=== PATIENT | male | born 1930 | race Caucasian/White ===

== ENCOUNTER 2018-12-11 10:50 | Inpatient (IN) | payer MEDICARE, OTHER ==
[~2018-12-11] VITALS: Ht 175.3 cm; Wt 90.0 kg
[~2018-12-11 10:50] MED LIST: ATOR10; Aspir 8181 MG PO; FURO20 PO; METO25ER; Micro-K10 MEQ; VERA120ERB; Zofran4 MG PO
[2018-12-11 11:21] LABS: BASOPHILS ABSOLUTE AUTO 0.03 K/mm3 (0.00-0.23); BASOPHILS PERCENT AUTO 0 % (0-2); EOSINOPHILS PERCENT AUTO 0 % (0-6); Hematocrit 46.3 % (37.0-53.0); Hemoglobin 15.6 g/dL (13.5-17.5); IMMATURE GRAN ABSOLUTE AUTO 0.08 K/mm3 (0.00-0.10); IMMATURE GRAN PERCENT AUTO 1 % (0-1); LYMPHOCYTES PERCENT AUTO 4 % (21-46); MONOCYTES ABSOLUTE AUTO 1.07 K/mm3 (0.16-1.47); MONOCYTES PERCENT AUTO 6 % (4-13); Mean Corpuscular HGB 33.1 pg (26.0-34.0); Mean Corpuscular HGB Conc 33.7 g/dL (31.5-36.5); Mean Corpuscular Volume 98 fL (80-100); Mean Platelet Volume 11.6 fL (9.1-12.4); NEUTROPHILS ABSOLUTE AUTO 15.18 K/mm3 (1.96-9.15); NEUTROPHILS PERCENT AUTO 89 % (41-73); Platelet Count 124 K/mm3 (150-400); RDW Coefficient Variation 13.2 % (11.7-14.2); RDW Standard Deviation 47.8 fL (35.1-46.3); Red Blood Cell Count 4.72 M/mm3 (4.30-5.90); White Blood Cell Count 17.06 K/mm3 (4.00-11.30)
[2018-12-11 11:39] LABS: Albumin, Blood 3.9 g/dL (3.4-5.0); Albumin/Globulin Ratio 1.1 (0.8-1.8); Bilirubin, Total 0.9 mg/dL (0.1-1.0); Calcium, Blood 8.7 mg/dL (8.5-10.1); Creatinine, Blood 1.27 mg/dL (0.60-1.20); Globulin, Blood 3.7 g/dL (2.2-4.0); Potassium, Blood 4.3 mmol/L (3.5-5.5); Total Protein, Blood 7.6 g/dL (6.4-8.2)
--- NOTE | 2018-12-11 18:43 | NUR ---
PATIENT ADMITTED THIS AFTERNOON . HE IS ALERT AND ORIENTED, INDEPENDANT IN THE ROOM. HE IS IN SEVERE PAIN AND REQUIRES PAIN MEDS Q2 HOURS. FAMILY AT BEDSIDE.
[2018-12-12 04:48] LABS: Hematocrit 49.4 % (37.0-53.0); Hemoglobin 16.4 g/dL (13.5-17.5); Mean Corpuscular HGB 32.5 pg (26.0-34.0); Mean Corpuscular HGB Conc 33.2 g/dL (31.5-36.5); Mean Corpuscular Volume 98 fL (80-100); Mean Platelet Volume 11.5 fL (9.1-12.4); Platelet Count 114 K/mm3 (150-400); RDW Coefficient Variation 13.6 % (11.7-14.2); RDW Standard Deviation 49.1 fL (35.1-46.3); Red Blood Cell Count 5.04 M/mm3 (4.30-5.90); White Blood Cell Count 20.01 K/mm3 (4.00-11.30)
--- NOTE | 2018-12-12 04:55 | NUR ---
SHIFT SUMMARY THE PATIENT PRESENTED THIS SHIFT WITH UNCONTROLED ABDOMINAL PAIN, ELEVATED B/P AND HIS TELE READING SHOWED, A-FIB WITH PVC AND RATE OF 67. THE PATIENT IS A&O X4, WITH CLEAR LUNG SOUNDS. THE PATIENT HAS REQUIRED FENTYNL FOR PAIN ABOUT EVERY 90 MINUTES. THE PATIENT IS INDEPENTENT IN HIS ROOM. THE PATIENT LACTIC ACID AT 2330 WAS 2.6, DOWN FROM 3.9. THE PATIENT HAS SLEPT OFF AND ON DURNING THE NIGHT. THE PATIENT IS RESTING AT THIS TIME, WILL CONTINUE TO MONITOR.
[2018-12-12 05:04] LABS: Bun/Creatinine Ratio 21.1 (12.0-20.0); Calcium, Blood 8.8 mg/dL (8.5-10.1); Creatinine, Blood 1.23 mg/dL (0.60-1.20); Potassium, Blood 4.2 mmol/L (3.5-5.5)
--- NOTE | 2018-12-12 07:32 | NUR ---
PT COMPLAINS OF PAIN 15/08, WRITHING AROUND IN BED, STATES THAT PAIN IS DULL BUT INTENSE DESPITE PAIN CONTROL PER EMAR. DR STEPHENS CALLED AT 0730 PER PT REQUEST AND NURSING JUDGEMENT. VS; 97.6, 79, 20, 190/91, 95% ON RA. NEW ORDERS INITIATED.
--- NOTE | 2018-12-12 08:16 | NUR ---
AT 0810 NURSE RECIEVED A CALL FROM [employer] THAT PT HAD 11 BEAT RUN OF V-TACH. PT AT 0806 WAS 177/83. WAS 190/[address] STEPHENS CALLED AT 0814. NEW ORDERS INITIATED.
--- NOTE | 2018-12-12 10:21 | NUR ---
DR STEPHENS AWARE OF ELEVATED TROPONIN OF 0.389
[2018-12-12 13:55] LABS: International Normalized Ratio 1.1; Prothrombin Time Results 11.6 Sec (9.7-11.5)
--- NOTE | 2018-12-12 14:07 | NUR ---
ECHOCARDIOGRAM COMPLETE
[2018-12-12 16:44] LABS: Source, Urine Catheter
[2018-12-12 16:53] LABS: Bilirubin, Urine Neg (Neg); Blood, Urine 5+ (Neg); Glucose Qualitative, Urine 2+ (Neg); Ketones, Urine 1+ (Neg); Leukocyte Esterase, Urine Neg (Neg); Nitrite, Urine Neg (Neg); Protein, Urine 3+ (Neg); Specific Gravity, Urine 1.015 (1.003-1.022); Urobilinogen, Urine NORM (Normal); pH, Urine 6.5 (5.0-8.0)
[2018-12-12 16:54] LABS: Appearance, Urine Clear (Clear); Color, Urine Yellow (P-Yellow)
[2018-12-12 17:04] LABS: White Blood Cells, Urine 0-2 /hpf (0-5)
[2018-12-12 17:05] LABS: Bacteria Rare /hpf; Squamous Epithelial Cells Not Seen /hpf (Few)
--- NOTE | 2018-12-12 18:19 | NUR ---
SHIFT SUMMARY PT AXO, PLEASANT AND COOPERATIVE WITH CARE THOUGH PAINFUL 7-08/05. PT MEDICATED PER EMAR. BLADDER SCAN Q6, STRAIGHT CATH OVER 350 ML, STRAIGHT CATHED ONCE THIS SHIFT, US SENT. PT HAD 11 BEAT RUN OF VTACH, SEE PRIOR NOTE. GI CONSULT AND SURGICAL CONSULT CALLED. PT UP WITH SBA. BED IN LOW POSITION, CALL LIGHT WITHIN REACH.
--- NOTE | 2018-12-13 05:10 | NUR ---
SUMMARY: A/O, PLEASANT/COOPERATIVE AND SPECIFIES NEEDS. HE'S A SBA OOB AND USED URINAL W/O DIFFICULTY. Q6H BLADDER SCANS COMPLETED AND PT NOTED TO RETAIN BUT PVR WAS <350 MLS BOTH TIMES. ABDO CONT'S INTERMITTENTLY PAINFUL W/DILAUDID PRN RECIEVED FOR TOLERABLE CONTROL X2 DOSES. HIS SBP WAS ALSO ELEVATED >160 W/PRN HYDRALAZINE RECIEVED X1 DOSE. HICCUPS PERSIST AT TIMES. PT REMAINS IN A.FIB W/PVC'S AT 70'S BPM. PT DIDN'T HAVE BM THIS SHIFT SO STAFF UNABLE TO OBTAIN STOOL SPECIMEN. SX CONSULT PENDING. WBC'S TRENDED SLIGHTLY UPWARD DESPITE RECIEVING IV ZOSYN Q6H. NO ACUTE CHANGES, VSS/AFREBRILE. WILL MONITOR AND REPORT TO DAY RN.
[2018-12-13 05:18] LABS: Hematocrit 48.2 % (37.0-53.0); Mean Corpuscular HGB 32.3 pg (26.0-34.0); Mean Corpuscular HGB Conc 33.2 g/dL (31.5-36.5); Mean Corpuscular Volume 97 fL (80-100); Mean Platelet Volume 11.3 fL (9.1-12.4); Platelet Count 100 K/mm3 (150-400); RDW Coefficient Variation 13.8 % (11.7-14.2); RDW Standard Deviation 49.7 fL (35.1-46.3); Red Blood Cell Count 4.95 M/mm3 (4.30-5.90); White Blood Cell Count 20.46 K/mm3 (4.00-11.30)
[2018-12-13 05:49] LABS: Bun/Creatinine Ratio 22.2 (12.0-20.0); Calcium, Blood 8.8 mg/dL (8.5-10.1); Creatinine, Blood 1.26 mg/dL (0.60-1.20); Potassium, Blood 4.1 mmol/L (3.5-5.5); Troponin I 0.375 ng/mL (0.000-0.040)
[2018-12-13 08:33] LABS: Hematocrit 48.3 % (37.0-53.0); Mean Corpuscular HGB 32.6 pg (26.0-34.0); Mean Corpuscular HGB Conc 33.1 g/dL (31.5-36.5); Mean Corpuscular Volume 98 fL (80-100); Mean Platelet Volume 11.9 fL (9.1-12.4); Platelet Count 103 K/mm3 (150-400); RDW Standard Deviation 50.4 fL (35.1-46.3); Red Blood Cell Count 4.91 M/mm3 (4.30-5.90); White Blood Cell Count 20.47 K/mm3 (4.00-11.30)
[2018-12-13 08:54] LABS: BAND PERCENT MAN 23 % (0-8); BASOPHILS PERCENT MAN 0 % (0-2); EOSINOPHILS PERCENT MAN 0 % (0-6); LYMPHOCYTES ABSOLUTE MAN 0.61 K/mm3 (0.84-5.20); LYMPHOCYTES PERCENT MAN 3 % (21-46); METAMYELOCYTE PERCENT MAN 1 % (0-0); MONOCYTES ABSOLUTE MAN 2.86 K/mm3 (0.16-1.47); MONOCYTES PERCENT MAN 14 % (4-13); NEUTROPHILS ABSOLUTE MAN 16.78 K/mm3 (1.96-9.15); SEG NEUTROPHILS PERCENT MAN 59 % (41-73); TOTAL CELLS COUNTED 100
--- NOTE | 2018-12-13 10:15 | NUR ---
PT LEFT ROOM VIA EMILEERJARED TO OPERATING ROOM VIA RN AND FAMILY AND CONSUMER SCIENCES TEACHER, DR DOTY AT 0950. PT'S SON PRESENT. PT MEDICATED FOR PAIN AT 0744 PER DEC. IV PATENT AND SALINE LOCKED. PT BELONGINGS WILL BE MOVED TO PT'S NEW ROOM WHEN ASSIGNMENT IS COMPLETE, THEN NURSE WILL CALL RECEIVING NURSE TO GIVE REPORT.
--- NOTE | 2018-12-13 11:11 | NUR ---
REPORT CALLED TO NEHAL TAFOYA AT 1105 WHO WILL ASSUME CARE AT THIS TIME. PT GOING TO ICU 10
--- NOTE | 2018-12-13 12:10 | NUR ---
PT ARRIVED TO ICU 10 AT 1110 POST EX LAP. PT HAS AN OPEN ABDOMEN WITH WOUND VAC OVER IT. NG TUBE IN WELL. PT STATES HE IS HAVING A LOT OF PAIN. DILAUDID GIVEN PER ORDERS. IV FLUIDS STARTED. BP ELEVATED, HYDRALAZINE GIVEN. PT IS IN AFIB, RATE CONTROLLED. LUNGS CLEAR, ON 2L/NC. BOWEL TONES ARE PRESENT. WOUND VAC HAS SS DRAINAGE IN IT. DEJESUS DRAINING DARK YELLOW URINE. PT'S SON AT THE BEDSIDE AND WAS UPDATED BY DR. LOMAS. PLAN OF CARE DISCUSSED WITH HIM. DR. LOMAS GAVE ORDERS FOR PT TO BE ICU STATUS AND TO START THE HEPARIN DRIP AT 1400.
--- NOTE | 2018-12-13 14:31 | NUR ---
PT'S HEPARIN GTT STARTED. DR. LOMAS GAVE VO TO NOT GIVE HEPARIN BOLUS, SO BOLUS HELD. LACTIC ACID FOR THE AM PLACED PER DR. LOMAS, AND ORDERS FOR LR BOLUS AND ICNREASE IN CONTINUOUS RATE PER DR. STEPHENS AFTER LAST LACTIC ACID VALUE. MORPHINE MANAGER RECRUITMENT STARTED. WHEN PT IS ASLEEP HE APPEARS COMFORTABLE, BUT WHEN HE WAKES UP HE HAS HICCUPS THAT ARE CAUSING HIM A LOT OF PAIN. THIS HAS ALL BEEN DISCUSSED WITH DR. LOMAS, WHICH IS WHY PAIN MANAGEMENT WAS SWITCHED TO MANAGER RECRUITMENT. DISCUSSED ALL THIS WITH FMILY AND PT WELL REALISTIC PAIN GOAL FOR THE PT. ALL HAVE VERBALIZED UNDERSTANDING.
--- NOTE | 2018-12-13 17:12 | NUR ---
SHIFT SUMMARY: PT'S PAIN HAS BEEN BETTER CONTROLLED WITH THE PERSONAL INSURANCE ADVISOR. HE STILL HAS PAIN, BUT HE HAS BEEN ABLE TO REST AND ISN'T GRIMACING FREQUENTLY. HIS LUNGS ARE CLEAR AND HE IS ON 2L/NC, BUT IN HIS MOUTH BECAUSE IS HAS BEEN MOUTH BREATHING WHILE SLEEPING. HE HAS BEEN WAKING UP AND USING THE PERSONAL INSURANCE ADVISOR MOSTLY APPROPRIATELY. OCCASIONALLY REQUIRES REMINDERS ABOUT HOW IT WORKS. BP WAS HYPERTENSIVE WHEN HE FIRST GOT BACK FROM OR, BUT BP HAS IMPROVED THROUGHOUT THE SHIFT. ABDOMEN REMAINS VERY TENDER. BOWEL TONES ARE TINKLING. WOUND VAC IN PLACE AND EDGES OF WOUND ARE C/D/I. SS DRAINAGE FROM WOUND VAC. NG TO LIS. FAMILY HAS BEEN AT THE BEDSIDE MOST OF THE SHIFT, BUT APPROPRIATELY ALLOWING PT TO REST.
--- NOTE | 2018-12-13 19:55 | NUR ---
[place] of Care: Patient sleeping, easily roused via verbal stimuli, oriented x4. C/o acceptable level of pain to ABD at rest 1-2/10, increased to 9/10 with coughing or repositioning. Patient states morphine ENTRY LEVEL CIVIL ENGINEER effectively managing pain. Morphine ENTRY LEVEL CIVIL ENGINEER dosed at 1mg/hr, ENTRY LEVEL CIVIL ENGINEER of 1mg q10 min with 24mg 4hr lockout, dosing confirmed with day shift RN. Heparin gtt at 15u/kg/hr, doses at 77kg, confirmed with EMAR and day shift RN, next PTT at 2000hr. LR infusing at 150ml/hr. Power-glide to rt upper arm patent and intact, peripheral IV to lt AC patent and intact. Wound-Vac to open mid/lower ABD, dressing compressed and intact, suctioning small amounts of sanguinous fluid. Herring cath patent and intact, draining light yellow clear urine. Hearth rhythm shows A-fibb, rate- 70's-80's, BP stable. Call light in reach, makes needs known. Will continue to monitor for pain, comfort, safety.
[2018-12-14 04:26] LABS: Hemoglobin 12.7 g/dL (13.5-17.5); Mean Corpuscular HGB 32.6 pg (26.0-34.0); Mean Corpuscular HGB Conc 32.6 g/dL (31.5-36.5); Mean Corpuscular Volume 100 fL (80-100); NRBC ABSOLUTE 0.03 K/mm3 (0.00-0.02); NRBC Auto 0.2 /100 WBC (0.0-0.2); Platelet Count 93 K/mm3 (150-400); RDW Coefficient Variation 14.1 % (11.7-14.2); RDW Standard Deviation 51.7 fL (35.1-46.3); White Blood Cell Count 16.85 K/mm3 (4.00-11.30)
[2018-12-14 04:38] LABS: Bun/Creatinine Ratio 21.3 (12.0-20.0); Calcium, Blood 8.2 mg/dL (8.5-10.1); Creatinine, Blood 1.69 mg/dL (0.60-1.20); Potassium, Blood 4.3 mmol/L (3.5-5.5)
[2018-12-14 04:55] LABS: BAND PERCENT MAN 23 % (0-8); BASOPHILS PERCENT MAN 0 % (0-2); EOSINOPHILS PERCENT MAN 0 % (0-6); LYMPHOCYTES ABSOLUTE MAN 0.33 K/mm3 (0.84-5.20); LYMPHOCYTES PERCENT MAN 2 % (21-46); METAMYELOCYTE ABSOLUTE MAN 0.16 K/mm3 (0.00-0.00); METAMYELOCYTE PERCENT MAN 1 % (0-0); MONOCYTES ABSOLUTE MAN 0.84 K/mm3 (0.16-1.47); MONOCYTES PERCENT MAN 5 % (4-13); SEG NEUTROPHILS PERCENT MAN 69 % (41-73); TOTAL CELLS COUNTED 100
--- NOTE | 2018-12-14 06:06 | NUR ---
Shift Summary: Patient slept well throughout shift. Pain effectively managed with morphine DIPLOMA MAKER. Denies dyspnea/SOB, O2-92-94% on 2L/NC. At approx 0300hr, patient's ABD wound-vac found off due to low battery, power-cord not found in room. New power cord obtained, and pump turned back on. Pump then alarmed clogged as small amount of blood had pooled under clear/occlusive dressing, although dressing remains intact. Contacted Dr. Osborn this morning r/t wound vac and urine output (325ml). No new orders received r/t wound vac, informed patient will likely go back to OR today. Received order for x1L bolus of LR. Informed pharmacy (per Dr. Osborn) to keep target rang PTT at 80 or less. Last PTT-93.2, dose decreased from 15u to 14u/kg/hr, next PTT at 1200. Power-glide remains patent and intact. Herring cath patent and intact, draining clear urine with sediment. Will continue to monitor until report to day shift RN.
--- NOTE | 2018-12-14 07:38 | NUR ---
ASSUMED CARE: REPORT RECEIVED FROM ADITI Rodriguez RN. ASSUMED CARE OF THIS PT AT APPROX 0700. ON ASSESSMENT, THE PT IS RESTING QUIETLY. HE AWAKENS EASILY TO VERBAL STIMULUS & STS PAIN IS "OKAY." WHEN ASKED HOW HE WOULD NUMERICALLY RATE PAIN, HE STS 10/10, BUT ALSO THAT THE PAIN IS "IMPROVED." USE OF PHYSICIST ACOUSTICS DISCUSSED & PT VERBALIZES UNDERSTANDING. THE WOUND VAC AT BEDSIDE IS ALARMING R/T BEING CLOTTED OFF. WOUND VAC DRESSING TO MIDLINE ABD IS INTACT, ALTHOUGH IT IS BULGING SLIGHTLY FROM SANGUINOUS DRAINAGE BENEATH THE DRESSING. THE SURGEON IS AWARE OF THESE THINGS & HAS BEEN IN THE ROOM TO SEE THE PT THIS AM PRIOR TO THIS RN ASSUMING CARE. PLAN IS FOR PT TO RETURN TO OR SOMETIME THIS AFTERNOON. WILL CONTINUE TO MONITOR & UPDATE NEEDED.
--- NOTE | 2018-12-14 10:24 | NUR ---
PT UPDATE: DR LOMAS CALLED TO REPORT A SURGICAL TIME OF 1500. ORDERED TO HAVE HEPARIN GTT STOPPED AT 1300, 2 HRS PRIOR TO SURGICAL TIME. CALLED [facility], AND PT HAS PLANNED PROCEDURE VENEER TAPING MACHINE OPERATOR TIME OF 1130.
--- NOTE | 2018-12-14 11:48 | NUR ---
HEART CENTER: HC STAFF IN ROOM TO PREP PT & TAKE HIM TO FIELD PROJECT MANAGER. CONSENT IS VERIFIED, PT AWAKE & UNDERSTANDING OF PROCEDURE. HE HAS BEEN TAKEN TO HC. WILL AWAIT PT's ARRIVAL BACK TO UNIT & UPDATE NEEDED.
--- NOTE | 2018-12-14 13:48 | NUR ---
RETURN FROM HEART CENTER / UPDATE: PT BACK TO AT 1335 FOLLOWING PROCEDURE IN HEART CENTER. HE IS RESTING QUIETLY AT THIS TIME, VSS. PER REPORT, HE RECEIVED 1MG VERSED & 25 MCG FENTANYL FOR PROCEDURE. ANGIOSEAL TO R FEMORAL ARTERY IS CDI. AREA IS SOFT TO PALPATION W/ NO BLEEDING, BRUISING OR HEMATOMA FORMATION NOTED AT THIS TIME. 2L NC ON AT THIS TIME, O2 SATS > 90%. THIS RN HAS NOTIFIED DAY SURGERY OF PT's RETURN TO , PLAN IS TO TAKE HIM TO OR AT APPROX 1430. WILL CONTINUE TO MONITOR & UPDATE NEEDED.
--- NOTE | 2018-12-14 14:32 | NUR ---
DAY SURGERY: RNs FROM DAY SURGERY IN ROOM TO PREP PT. ANESTHESIOLOGIST IN ROOM TO CONSENT PT. HE WAS ABLE TO SIGN ONE CONSENT BUT THEN SAID HE WAS "TOO WEAK" TO SIGN THE SECOND SHEET OF PAPER. THE PT VERBALIZES THAT HE IS "OKAY" W/ PROCEDURE & 2 RNs HAVE SIGNED TO WITNESS THIS. PT OUT OF FOR DAY SURGERY AT 1430. WILL AWAIT ARRIVAL BACK TO ROOM & UPDATE NEEDED.
--- NOTE | 2018-12-14 15:21 | NUR ---
12/14/18 1521 Mary [place] PATIENT ARRIVED FROM ICU WITH WOUND VAC IN PLACE. DR LOMAS REMOVED WOUND VAC AND REQUESTED INTACT SKIN BE PREPPED WITH CHLOROPREP. NO PREP WAS DONE TO OPEN ABDOMEN. PATIENT ON SCHEDULED ANTIBIOTICS.
--- NOTE | 2018-12-14 17:39 | NUR ---
RETURN FROM DAY SURGERY / UPDATE: PT RETURNED TO FROM DAY SURG AT APPROX 1640. HE IS DROWSY ON ARRIVAL, ETT IN PLACE & BEING VENTILATED VIA DAY PERSONAL COMPUTER NETWORK ENGINEERVICENTE MENDOZA. ETT ATTACHED TO VENT BY RT FRANSISCO. VENT SETTINGS: AC 14, TV 450, PEEP 5 & FIO2 35%. PROPOFOL INITIATED ORDERED FOR SEDATION. WOUND VAC IN PLACE TO MIDLINE ABD. R FEMORAL PUNCTURE SITE FROM SILK SPOOLER IS FREE OF BLEEDING, BRUISING & HEMATOMA FORMATION, SOFT TO PALPATION. DR. HERNANDEZ HAS BEEN CONSULTED & IS BEDSIDE SHORTLY AFTER PT's ARRIVAL TO UNIT. ORDERS HAVE BEEN PLACED FOR BILAT SOFT WRIST RESTRAINTS. PT CHARMAINE WELL. WILL CONTINUE TO MONITOR & UPDATE NEEDED.
--- NOTE | 2018-12-14 18:56 | NUR ---
SHIFT SUMMARY: NO ACUTE CHANGES SINCE PRIOR UPDATE. PT REMAINS INTUBATED/SEDATED. HE IS RESTING QUIETLY W/ NO S/SX PAIN OR DISCOMFORT NOTED AT THIS TIME. BILAT SOFT WRIST RESTRAINTS IN PLACE. LS REMAIN DIM IN BASES, VENT SETTINGS: AC 14, TV 450, PEEP 5 & FiO2 35%. AFIB W/ HR 70-80s NOTED ON MONITOR. NGT HAS BEEN REPLACED W/ OGT PER DR. HERNANDEZ R/T SINUSITIS. DEJESUS PATENT/DRAINING DARK YELLOW URINE, MINIMAL OUTPUT THIS SHIFT. WOUND VAC REMAINS CDI, NO OUTPUT NOTED IN CANISTER. R FEMORAL SITE REMAINS FREE OF BLEEDING, BRUISING OR HEMATOMA FORMATION & IS SOFT TO PALPATION. WILL CONTINUE TO MONITOR & REPORT OFF TO ONCOMING RN.
[2018-12-14 19:39] LABS: PCO2 Arterial 35.9 mmHg (35-45); PO2 Arterial 77.7 mmHg (80-100); pH Blood Arterial 7.41 (7.35-7.45)
--- NOTE | 2018-12-14 20:11 | NUR ---
CARE ASSUMED REPORT RECEIVED, CARE ASSUMED AT 1900 FROM NEHAL, RN AND VICENTE SALCEDO. PT INITIALLY SEDATED WITH 10 MCG/KG/MIN OF PROPOFOL, AND VERY DIFFICULT TO AROUSE. MINIMAL RESPONSE WITH STERNAL RUB. SEDATION DECREASED TO 5 MCG/KG/MIN. DURING ORAL CARE, PT BECAME AROUSED, SHAKING HEAD FROM SIDE TO SIDE, PULLING AT RESTRAINTS AND REACHING FOR ETT. PT REDIRECTABLE WITH EDUCATION. PT FORGETFUL, REQUIRING FREQUENT RE-EDUCATION. PT RE-SEDATED. WOUND VAC IN PLACE TO ABDOMEN, TURNED ON AND RUNNING, NO OUTPUT NOTED. OG IN PLACE WITH MODERATE GREEN OUTPUT. DEJESUS IN PLACE WITH MINIMAL OUTPUT. VITALS STABLE. SEE FLOWSHEETS/ASSESSMENTS.
--- NOTE | 2018-12-15 | NUR ---
REASSESSMENT SINCE PREVIOUS NOTE, PT HAS RESTED QUITELY, PROPOFOL TITRATED BETWEEN 5-10 FOR SEDATION. PT EXPRESSES NEEDS BY ANSWERING YES/NO QUESTIONS AND FOLLOWS COMMANDS. PT HAS CONSISTENTLY DENIED PAIN. PT HAS TOLERATED TURNS. VENT SETTINGS CONSISTENT, O2 SATS IN 90'S, RR 12-20'S. VITALS STABLE. WOUND VAC CONTINUES TO BE CLEAN/DRY/INTACT WITH NO OUTPUT. RIGHT GROIN SITE UNCHANGED. DEJESUS CONTINUES TO SLOWLY DRAIN YELLOW URINE.
[2018-12-15 03:57] LABS: BASOPHILS ABSOLUTE AUTO 0.03 K/mm3 (0.00-0.23); BASOPHILS PERCENT AUTO 0 % (0-2); Hematocrit 33.5 % (37.0-53.0); Hemoglobin 10.9 g/dL (13.5-17.5); LYMPHOCYTES ABSOLUTE AUTO 0.38 K/mm3 (0.84-5.20); LYMPHOCYTES PERCENT AUTO 3 % (21-46); MONOCYTES ABSOLUTE AUTO 0.66 K/mm3 (0.16-1.47); MONOCYTES PERCENT AUTO 5 % (4-13); Mean Corpuscular HGB 32.4 pg (26.0-34.0); Mean Corpuscular HGB Conc 32.5 g/dL (31.5-36.5); Mean Corpuscular Volume 100 fL (80-100); Mean Platelet Volume 11.8 fL (9.1-12.4); NRBC ABSOLUTE 0.04 K/mm3 (0.00-0.02); NRBC Auto 0.3 /100 WBC (0.0-0.2); Platelet Count 91 K/mm3 (150-400); RDW Coefficient Variation 13.8 % (11.7-14.2); RDW Standard Deviation 50.7 fL (35.1-46.3); Red Blood Cell Count 3.36 M/mm3 (4.30-5.90); White Blood Cell Count 12.78 K/mm3 (4.00-11.30)
[2018-12-15 04:02] LABS: EOSINOPHILS PERCENT AUTO 0 % (0-6); IMMATURE GRAN ABSOLUTE AUTO 0.16 K/mm3 (0.00-0.10); IMMATURE GRAN PERCENT AUTO 1 % (0-1); NEUTROPHILS ABSOLUTE AUTO 11.55 K/mm3 (1.96-9.15); NEUTROPHILS PERCENT AUTO 90 % (41-73)
[2018-12-15 04:10] LABS: Bun/Creatinine Ratio 23.8 (12.0-20.0); Calcium, Blood 7.9 mg/dL (8.5-10.1); Creatinine, Blood 1.68 mg/dL (0.60-1.20); Potassium, Blood 4.2 mmol/L (3.5-5.5)
[2018-12-15 04:12] LABS: BAND PERCENT MAN 10 % (0-8); BASOPHILS PERCENT MAN 0 % (0-2); EOSINOPHILS PERCENT MAN 0 % (0-6); LYMPHOCYTES ABSOLUTE MAN 0.25 K/mm3 (0.84-5.20); LYMPHOCYTES PERCENT MAN 2 % (21-46); METAMYELOCYTE ABSOLUTE MAN 0.12 K/mm3 (0.00-0.00); METAMYELOCYTE PERCENT MAN 1 % (0-0); MONOCYTES ABSOLUTE MAN 0.51 K/mm3 (0.16-1.47); MONOCYTES PERCENT MAN 4 % (4-13); MYELOCYTE ABSOLUTE MAN 0.12 K/mm3 (0.00-0.00); MYELOCYTE PERCENT MAN 1 % (0-0); NEUTROPHILS ABSOLUTE MAN 11.75 K/mm3 (1.96-9.15); SEG NEUTROPHILS PERCENT MAN 82 % (41-73); TOTAL CELLS COUNTED 100
[2018-12-15 04:13] LABS: PCO2 Arterial 35.4 mmHg (35-45); PO2 Arterial 67.8 mmHg (80-100); pH Blood Arterial 7.45 (7.35-7.45)
--- NOTE | 2018-12-15 06:00 | NUR ---
SEDATION VACATION / SPONTANEOUS BREATHING TRIAL SEDATION REMOVED FOR SPONTANEOUS BREATHING TRIAL. PT CALM, COOPERATIVE, FOLLOWING COMMANDS AND EXPRESSING NEEDS. PT REPEATEDLY ASKS FOR ETT TO BE TAKEN OUT BY POINTING AND NODDING "YES" WHEN PROMPTED. EDUCATED ABOUT PLAN AND PURPOSE AND PT AGREEABLE, THOUGH FORGETFUL OF EDUCATION. PT ON PRESSURE SUPPORT 04/30, TRIAL COMPLETED PER KIERSTEN RT, AND PT REQUESTS TO STAY UNSEDATED AND TOLERATED FOR APPROX 2 HOURS. DURING NURSE ROUNDS, PT REQUESTING TO BE RE-SEDATED PER YES/NO QUESTIONS. JANIE, RT TO BEDSIDE TO PLACE PATIENT BACK ON AC /. PROPOFOL RE-TITRATED TO EFFECT.
--- NOTE | 2018-12-15 07:20 | NUR ---
SUMMARY VITALS STABLE, PT CONTINUES TO EXPRESS NEEDS PRN. WOUND VAC AND RIGHT GROIN SITE UNCHANGED. VENT SETTINGS UNCHANGED.
--- NOTE | 2018-12-15 07:28 | NUR ---
Recieved report from Salina ZHANG. Patient laying on right side with HOB at 30 degrees. He is intubated and sedated light and opens eyes to verbal stimuli. He is intubated with 8.0 RT and 25cm at teeth, vent settings AC 14, TV 450, FiO2 35% and PEEP 5.0 and sats 98% He has 20ga PowerGlide in CHAPARRITA dressing intact and site WNL's and is infusing Propofol at 10 mcg/kg/hr and LR at 150ml/hr. He also has 20ga IV LFA dressing intact and site WNL's infusing Heparin gtt at 14 units/kg/hr. He has midline abdominal wound with wound vac in place with scant output. He has 14Fr. mata draining to gravity unruly colored urine. He is wearing bilateral SCD's to LE's. He is in bilateral soft wrist restraints to protect lines and tubes.
--- NOTE | 2018-12-15 09:30 | NUR ---
Pulled OG and replaced with NG as he will probably be extubated today and Dr Osborn wants tube in to decompress stomach. Increased Propofol to 20 during insrtion and he tolerated well. He was hitting bedrailm and when asked he motioned he wanted tube out. Increased Propofol back to 20 to let him rest. He is LIS to NG.
--- NOTE | 2018-12-15 11:30 | NUR ---
Patient continues to rest while on 20mcg/kg/hr Propofol, no changes in Heparin gtt or fluids. No changes in vent setting and sats upper 90%'s. Abdomen c/d/i and still scant output.
--- NOTE | 2018-12-15 12:58 | NUR ---
Sputum sample taken and will be placed on Spontaneouis mode per Dr Hooks whom wasm by to evaluate. will consider extubation if does well
--- NOTE | 2018-12-15 13:49 | NUR ---
Patient was turned down to 5mcg propofol and is starting to wake upm > Dr Hooks requested sputum sample. He has been placed on spontaneous PS 7/5 and sats upper 90%'s. He was extubated and is on RA and able to answer question.
--- NOTE | 2018-12-15 15:30 | NUR ---
Patient is alert and oriented an d is able to communicate his needs. Dr Wright and Dr Osborn have been by and patient has been doing well. Family and has been in and is at bedside. Propofol off and LR at 50ml/hr and no change ion heparin gtt.
--- NOTE | 2018-12-15 18:24 | NUR ---
patient has been resting well and is very cooperative with care. Wound vac site C/D/I with scant output. He remains on Ra and sats upper 90@. No changes in Haparin gtt at 14 units/kg/hr. LR contn ues to run at 50ml/hr. Placed PICC line in LINDA and will start TPN tomorrow. SCD's bilaterally to LE's. Herring still draining to gravity cloudy unruly urine. NG to LIS with minimal output
[2018-12-16 03:42] LABS: BASOPHILS ABSOLUTE AUTO 0.04 K/mm3 (0.00-0.23); BASOPHILS PERCENT AUTO 0 % (0-2); EOSINOPHILS PERCENT AUTO 0 % (0-6); Hematocrit 29.4 % (37.0-53.0); Hemoglobin 9.8 g/dL (13.5-17.5); IMMATURE GRAN ABSOLUTE AUTO 0.68 K/mm3 (0.00-0.10); IMMATURE GRAN PERCENT AUTO 5 % (0-1); LYMPHOCYTES ABSOLUTE AUTO 0.43 K/mm3 (0.84-5.20); LYMPHOCYTES PERCENT AUTO 3 % (21-46); MONOCYTES ABSOLUTE AUTO 1.46 K/mm3 (0.16-1.47); MONOCYTES PERCENT AUTO 10 % (4-13); Mean Corpuscular HGB 33.1 pg (26.0-34.0); Mean Corpuscular HGB Conc 33.3 g/dL (31.5-36.5); Mean Corpuscular Volume 99 fL (80-100); Mean Platelet Volume 11.7 fL (9.1-12.4); NEUTROPHILS ABSOLUTE AUTO 12.23 K/mm3 (1.96-9.15); NEUTROPHILS PERCENT AUTO 82 % (41-73); NRBC ABSOLUTE 0.07 K/mm3 (0.00-0.02); NRBC Auto 0.5 /100 WBC (0.0-0.2); Platelet Count 94 K/mm3 (150-400); RDW Coefficient Variation 13.7 % (11.7-14.2); RDW Standard Deviation 50.4 fL (35.1-46.3); Red Blood Cell Count 2.96 M/mm3 (4.30-5.90); White Blood Cell Count 14.84 K/mm3 (4.00-11.30)
[2018-12-16 03:58] LABS: Albumin, Blood 1.6 g/dL (3.4-5.0); Albumin/Globulin Ratio 0.5 (0.8-1.8); Bilirubin, Total 0.4 mg/dL (0.1-1.0); Bun/Creatinine Ratio 28.4 (12.0-20.0); Calcium, Blood 7.8 mg/dL (8.5-10.1); Creatinine, Blood 1.62 mg/dL (0.60-1.20); Globulin, Blood 3.2 g/dL (2.2-4.0); Magnesium, Blood 2.4 mg/dL (1.6-2.4); Potassium, Blood 3.9 mmol/L (3.5-5.5); Total Protein, Blood 4.8 g/dL (6.4-8.2)
--- NOTE | 2018-12-16 07:17 | NUR ---
SUMMARY VITALS STABLE THROUGHOUT NIGHT. PT CALLING FOR NEEDS INCLUDING REPOSITIONING AND PAIN MEDS. PT INCREASINGLY INVOLVED IN REPOSITIONING AND MOVEMENT WITH EACH TURN. WOUND VAC CONTINUES TO HAVE NO OUTPUT. NG OUTPUT DECREASING, SEE I/O FLOWSHEET. HEPARIN GTT INFUSING THROUGHOUT NIGHT PER PHARMACY ORDERS. DEJESUS CONTINUES TO DRAIN ADEQUATELY. NEURO/RESP ASSESSMENTS UNCHANGED THROUGHOUT NIGHT. REPORT TO VICENTE CALIXTO.
--- NOTE | 2018-12-16 07:42 | NUR ---
START OF SHIFT NOTE: PATIENT IS RESTING COMFORTABLY, DENIES PAIN AT THIS TIME, AFEBRILE, NG IN PLACE, DRAINING BLACKISH/BROWN LIQUID, MIDLINE INCISION, WOUND VAC IN PLACE, NO OUTPUT NOTED IN COLLECTION CHAMBER, DEJESUS CATHETER IN PLACE, DR. LOMAS IN TO SEE PATIENT, VSS, PATIENT HAS CLINIMAX AND HEPARIN AT 14 UNITS INFUSING AT THIS POINT, PATIENT IS AWAKE, ALERT AND ORIENTED, C/O PERIODIC HICCUPS, A-FIB WITH CONTROLLED RATE IN 50s TO 60s, SON AT BEDSIDE, CALL LIGHT IN REACH, WILL CONTINUE TO MONITOR.
--- NOTE | 2018-12-16 10:03 | NUR ---
PATIENT C/O 5/10 ABDOMINAL PAIN AT 0920, RECEIVED 25 MCG OF FENTANYL, RECHECKED AT 1000 AND PATIENT STATED THAT PAIN IS NOW DOWN TO 2/10, FENTANYL EFFECTIVE, CALL LIGHT IN REACH, WILL CONTINUE TO MONITOR.
--- NOTE | 2018-12-16 11:27 | NUR ---
PATIENT SOLDER SPRAYER LIGHT, C/O SHORTNESS OF BREATH, DENIES CHEST PAIN/DISCOMFORT, PLACED ON 3L NC, DR. WEAVER NOTIFIED, NEW ORDERS RECEIVED.
--- NOTE | 2018-12-16 11:33 | NUR ---
CHEST XRAY ORDERED, PATIENT STATES "OH, I FEEL ALRIGHT", APPEARS TO BE BREATHING EASIER WITH SUPPLEMENTAL O2, AWAITING PROTABLE CHEST XRAY, CALL LIGHT IN REACH, WILL CONTINUE TO MONITOR.
--- NOTE | 2018-12-16 13:07 | NUR ---
DR. WEAVER CALLED AND UPDATE PROVIDED ON PATIENT, UP IN CHAIR, 3L NC, DENIES SHORTNESS OF BREATH AT THIS TIME, USING INCENTIVE SPIROMETER WITH COACHING, CONTINUES TO BE UP IN CHAIR, RESTING COMFORTABLY AT THIS TIME, CALL LIGHT IN REACH, WILL CONTINUE TO MONITOR.
--- NOTE | 2018-12-16 17:50 | NUR ---
SHIFT SUMMARY NOTE: PATIENT IS RESTING COMFORTABLY AND WATCHING TV AT THIS TIME, ALERT AND ORIENTED, ABLE TO MAKE NEEDS KNOWN, LUNGS CLEAR BUT DIMINISHED ESPECIALLY IN BASES, PATIENT IS IN A-FIB WITH CONTROLLED RATE BETWEEN 50s AND 70s BUT MAY BE LOW UPPER 40s WHEN SLEEPING, WOUND VAC IN PLACE AND NO OUTPUT NOTED, PATIENT HAS PICC IN LINDA AND POWERGLIDE IN CHAPARRITA, BOTH ARE FLUSHING WELL AND HAVE GOOD BLOOD RETURN, PATIENT HAS DEJESUS CATHETER IN PLACE WITH GOOD OUTPUT OF DARK YELLOW URINE, SCD'S IN PLACE, NG TUBE IN PLACE TO LIS, 400 CC OUTPUT OF BLACKISH COLOR, DR. LOMAS AWARE, PATIENT RECEIVED FENTANYL TWICE, 25 MCG THIS AM AND 50 MCG THIS AFTERNOON, USES INCENTIVE SPIROMETER EVERY HOUR, SELF MOTIVATED, HAS GOOD COUGH AND PRODUCES MODERATE AMOUNTS OF CLEAR WHITE SPUTUM, PATIENT C/O SHORTNESS OF BREATH BRIEFLY, DR. WEAVER MADE AWARE, CHEST XRAY WAS ORDERED, BUT SHOWED NO CHANGES COMPARED TO AM XRAY, PATIENT WAS PLACED ON 3L NC AND REPORTED NO MORE SHORTNESS OF BREATH, PATIENT WAS UP TO CHAIR VIA CEILING LIFT, AND TOLERATED 3 HOURS IN CHAIR, THEN RETURNED TO BED, CLINIMIX WAS CHANGED TO TPN, PATIENT CONTINUES TO BE ON HEPARIN DRIP AT RATE OF 14 UNITS, ALSO ON ZOSYN AT THIS TIME, FAMILY AND FRIENDS IN TO SEE PATIENT, CALL LIGHT IN REACH, WILL CONTINUE TO MONITOR AND GIVE REPORT TO ONCOMING RUSSIAN TEACHER.
--- NOTE | 2018-12-16 19:00 | NUR ---
[place] of Care: Patient alert and oriented x4. C/o pain 01/03 to ABD, but states prn fentanyl is effectively managing pain, denies needs for pain medications at this time. Denies dyspnea or SOB, O2-98% on 2L/NC. VSS, heart rhythm shows Afibb, rate 40's-60, patient asymptomatic when HR decreases to 40's. NG to LIS, dark green bile noted in tube, no increase in amount since day shift. MID/lower ABD incision has wound-vac in place. Wound-vac dressing compress/intact, no drainage noted, ABD binder in place. PICC to LINDA patent and intact, Power-glide to CHAPARRITA patent and intact. CPN infusing at 75ml/hr. Heparin gtt infusing at 14u/kg/hr, doses at 77kg, confirmed with EMAR, next PTT at 2000hr. Call light in reach, makes needs known. Will continue to monitor for pain, comfort, safety.
[2018-12-17 04:17] LABS: Hematocrit 29.9 % (37.0-53.0); Hemoglobin 9.9 g/dL (13.5-17.5); Mean Corpuscular HGB 32.8 pg (26.0-34.0); Mean Corpuscular HGB Conc 33.1 g/dL (31.5-36.5); Mean Corpuscular Volume 99 fL (80-100); Mean Platelet Volume 11.8 fL (9.1-12.4); NRBC ABSOLUTE 0.06 K/mm3 (0.00-0.02); NRBC Auto 0.4 /100 WBC (0.0-0.2); Platelet Count 106 K/mm3 (150-400); RDW Coefficient Variation 13.7 % (11.7-14.2); RDW Standard Deviation 49.1 fL (35.1-46.3); Red Blood Cell Count 3.02 M/mm3 (4.30-5.90); White Blood Cell Count 15.05 K/mm3 (4.00-11.30)
[2018-12-17 04:32] LABS: Anion Gap 7 mmol/L (6-16); Blood Urea Nitrogen 48 mg/dL (8-24); Bun/Creatinine Ratio 37.8 (12.0-20.0); CO2, Blood 26 mmol/L (21-32); Calcium, Blood 7.7 mg/dL (8.5-10.1); Chloride, Blood 112 mmol/L (98-108); Creatinine, Blood 1.27 mg/dL (0.60-1.20); Glomerular Filtration Rate 57 (60-); Glucose, Blood 153 mg/dL (70-99); Magnesium, Blood 2.4 mg/dL (1.6-2.4); Phosphorus, Blood 3.9 mg/dL (2.5-4.9); Potassium, Blood 3.9 mmol/L (3.5-5.5); Sodium, Blood 145 mmol/L (136-145); Triglycerides 202 mg/dL (30-160)
[2018-12-17 04:50] LABS: BAND PERCENT MAN 11 % (0-8); BASOPHILS PERCENT MAN 0 % (0-2); EOSINOPHILS PERCENT MAN 0 % (0-6); LYMPHOCYTES PERCENT MAN 6 % (21-46); METAMYELOCYTE PERCENT MAN 6 % (0-0); MONOCYTES PERCENT MAN 4 % (4-13); MYELOCYTE ABSOLUTE MAN 1.05 K/mm3 (0.00-0.00); MYELOCYTE PERCENT MAN 7 % (0-0); NEUTROPHILS ABSOLUTE MAN 11.58 K/mm3 (1.96-9.15); SEG NEUTROPHILS PERCENT MAN 66 % (41-73); TOTAL CELLS COUNTED 100
--- NOTE | 2018-12-17 06:08 | NUR ---
Shift Summary: Patient slept on/off throughout shift. C/o ABD pain effectively managed with prn fentanyl, x3 doses. Denies dyspnea or SOB throughout shift. VSS, heart rhythm continued in A-fibb, rate mostly in the 50's, occasional/short decrease into the 40's. Systolic BP increased to 170's-180's, x1 prn dose of Hydralazine given with good effect. Wound-vac to mid/lower ABD incision, dressing remains compressed/intact, no drainage throughout shift, ABD binder in place. NG to LIS throughout shift, total of 300ml dark green output noted. Herring cath patent and intact, draining light yellow, clear urine. PICC line and power-glide remain patent and intact. Patient sleeping at this time, makes needs known. Will continue to monitor until report to day shift RN.
--- NOTE | 2018-12-17 07:27 | NUR ---
START OF SHIFT NOTE: RECEIVED REPORT FROM VICENTE PENNINGTON, ASSUMED CARE, PATIENT IS AWAKE, ALERT AND ORIENTED, PARTY SUPPLY SPECIALIST LIGHT, STATED "I PUSHED THE WRONG BUTTON", LS CLEAR BUT DIMINISHED IN BASES, A-FIB WITH CONTROLLED RATE BETWEEN 40s TO 60s, MIDABDOMINAL INCISION C/D/I, WOUND VAC INTACT BUT NO OUTPUT, DEJESUS CATHETER IN PLACE, SCDs ON, PATIENT DENIES PAIN OR SHORTNESS OF BREATH AT THIS TIME, REPORTS NOT CHEST PAIN/DISCOMFORT, HEPARIN DRIP AT 14 UNITS, TPN AT 75 INFUSING THROUGH LINDA PICC, PATIENT ALSO HAS CHAPARRITA POWERGLIDE WHICH FLUSHES WELL, AND HAS GOOD BLOOD RETURN, CALL LIGHT IN REACH, WILL CONTINUE TO MONITOR.
--- NOTE | 2018-12-17 08:15 | NUR ---
PATIENT RECEIVED 10 MG OF HYDRALAZINE ORDERED FOR SBPs GREATER THAN 180 AND MAP GREATER THAN 100s, DR. WEAVER IN TO SEE PATIENT, NO NEW ORDERS, DR. LOMAS IN TO SEE PATIENT, ALLOWED PATIENT TO HAVE ICE CHIPS SPARINGLY.
--- NOTE | 2018-12-17 10:00 | NUR ---
PATIENT PIPE CHIPPER LIGHT, C/O PAIN 8/10 AT ABDOMINAL INCISION, RECEIVED 50 MCG OF FENTANYL IV, FAMILY AT BEDSIDE, CALL LIGHT IN REACH, WILL CONTINUE TO MONITOR.
--- NOTE | 2018-12-17 11:04 | NUR ---
PATIENT IS RESTING COMFORTABLY AT THIS TIME, STATES THAT HIS PAIN HAS SUBSIDED, PATIENT IS MOTIVATED AND DOING INCENTIVE SPIROMETER EVERY HOUR INSTRUCTED, NG OUTPUT IS FLOOR FINISHER HELPER IN COLOR, LIGHT BROWN LIQUID INSTEAD OF BLACKISH DRAINAGE, CALL LIGHT IN REACH, WILL CONTINUE TO MONITOR.
--- NOTE | 2018-12-17 17:30 | NUR ---
SHIFT SUMMARY NOTE: PATIENT CONTINUES TO IMPROVE, AWAKE, ALERT AND ORIENTED, LS CLEAR AND DIMINISHED IN BASES, A-FIB WITH RATE FROM 40s WHEN SLEEPING TO 60s WITH MINIMAL ACTIVITY, BOWEL TONES PRESENT IN ALL FOUR QUADRANTS, MIDABDOMINAL INCISION SITE HAS WOUND VAC IN PLACE, SEALED AND COMPRESSED, NO OUTPUT AT THIS TIME, DEJESUS CATHETER IN PLACE, DRAINING LARGE AMOUNTS OF YELLOW URINE, SCDs IN PLACE, PATIENT RECEIVED FENTANYL 50 MCG FOR PAIN FOUR TIMES TODAY, WAS UP IN CHAIR FOR ENTIRE AFTERNOON , FAMILY AT BEDSIDE, FOR DETAILS SEE SHIFT ASSESSMENT DOCUMENTATION AND NURSES NOTES, CALL LIGHT IN REACH, WILL CONTINUE TO MONITOR.
--- NOTE | 2018-12-17 19:00 | NUR ---
[place] of Care: Patient alert and oriented. C/o mild pain 1-2 to ABD, effectively managed by prn fentanyl given on day shift, denies needs for pain medications at this time. Denies dyspnea or SOB, O2- 97% on RA. Heart rhythm shows A-fibb in the 50's, BP stable. Heparin gtt at 14u/kg/hr, dosed at 77kg, confirmed with EMAR, next PTT with morning labs. TPN at 75ml/hr. PICC line (LINDA), Power-glide (CHAPARRITA), patent and intact. Herring cath patent and intact, draining light yellow clear urine. Mid/lower ABD incision, wound-vac dressing in place, dressing compressed/intact, no output. NG to LIS, dark green/brown drainage noted. Call light in reach, makes needs known. Will continue to monitor for pain, safety, comfort.
[2018-12-18 03:30] LABS: Hematocrit 27.3 % (37.0-53.0); Hemoglobin 8.9 g/dL (13.5-17.5); Mean Corpuscular HGB 32.6 pg (26.0-34.0); Mean Corpuscular HGB Conc 32.6 g/dL (31.5-36.5); Mean Corpuscular Volume 100 fL (80-100); Mean Platelet Volume 11.6 fL (9.1-12.4); NRBC ABSOLUTE 0.14 K/mm3 (0.00-0.02); NRBC Auto 0.9 /100 WBC (0.0-0.2); Platelet Count 118 K/mm3 (150-400); RDW Coefficient Variation 13.9 % (11.7-14.2); RDW Standard Deviation 50.9 fL (35.1-46.3); Red Blood Cell Count 2.73 M/mm3 (4.30-5.90); White Blood Cell Count 15.66 K/mm3 (4.00-11.30)
[2018-12-18 03:55] LABS: Albumin, Blood 1.8 g/dL (3.4-5.0); Albumin/Globulin Ratio 0.6 (0.8-1.8); Bilirubin, Total 0.5 mg/dL (0.1-1.0); Calcium, Blood 7.5 mg/dL (8.5-10.1); Creatinine, Blood 1.27 mg/dL (0.60-1.20); Globulin, Blood 3.1 g/dL (2.2-4.0); Magnesium, Blood 2.3 mg/dL (1.6-2.4); Phosphorus, Blood 3.9 mg/dL (2.5-4.9); Potassium, Blood 4.2 mmol/L (3.5-5.5); Total Protein, Blood 4.9 g/dL (6.4-8.2)
--- NOTE | 2018-12-18 05:52 | NUR ---
Shift Summary: Patient slept on/off throughout shift. C/o ABD pain 4-5/10, effectively managed with prn fentanyl. Denies dyspnea/SOB, O2-97-98% on RA. Wound vac to mid/lower ABD incision, dressing remains compressed/intact, 0ml output, ABD binder in place. NG to LIS throughout shift, dark green/brown drainage, 280ml total output. Heart rhythm continues in Afibb, rate 50's-60's, BP stable. PICC line (LINDA), Power-glide (CHAPARRITA), remain patent and intact. Herring cath remains patent and intact, draining light yellow clear urine. Call light in reach, makes needs known. Will continue to monitor until report to day shift RN.
[2018-12-18 06:16] LABS: BAND PERCENT MAN 5 % (0-8); BASOPHILS PERCENT MAN 0 % (0-2); EOSINOPHILS ABSOLUTE MAN 0.31 K/mm3 (0.00-0.68); EOSINOPHILS PERCENT MAN 2 % (0-6); LYMPHOCYTES PERCENT MAN 9 % (21-46); METAMYELOCYTE ABSOLUTE MAN 0.46 K/mm3 (0.00-0.00); METAMYELOCYTE PERCENT MAN 3 % (0-0); MONOCYTES ABSOLUTE MAN 1.72 K/mm3 (0.16-1.47); MONOCYTES PERCENT MAN 11 % (4-13); MYELOCYTE ABSOLUTE MAN 0.62 K/mm3 (0.00-0.00); MYELOCYTE PERCENT MAN 4 % (0-0); NEUTROPHILS ABSOLUTE MAN 11.27 K/mm3 (1.96-9.15); SEG NEUTROPHILS PERCENT MAN 67 % (41-73); TOTAL CELLS COUNTED 150
--- NOTE | 2018-12-18 07:00 | NUR ---
ASSUMED CARE OF PT. PT IS ALERT AND ORIENTED. COMPLAINTS OF SLIGHT SHORTNESS OF BREATH. PT ON ROOM AIR WITH 98% O2 SATURATION. MIDLINE ABDOMINAL INCISION WITH WOUND VAC IN PLACE WITH GOOD SEAL.
--- NOTE | 2018-12-18 08:49 | NUR ---
0815-DR. HOBSON CAME BY TO SEE PT. UPDATED HIM OF PT'S STATUS. 7555-DR. LOMAS CAME BY TO SEE PATIEN. UPDATED HIM OF PT'S CONDITION. PT'S SON AT BEDSIDE.
--- NOTE | 2018-12-18 09:27 | NUR ---
5260-PAGED DR. LOMAS REGARDING PT'S COMPLAINTS OF ABDOMINAL PAIN. 7817-DR. LOMAS CALLED BACK. INFORMED HIM PT WAS COMPLAINING OF ABDOMINAL PAIN AN HOUR AND 15MINS OF RECEIVING 50MCG OF FENTANYL. ORDER FOR FENTANYL WAS 25-50MCG EVERY 2 HRS PRN. THIS NURSE DECIDED TO GIVE ANOTHER 25MCG OF FENTANYL AT O856. DR. LOMAS ORDERED FOR CT SCAN OF ABDOMEN AND PELVIS WITHOUT CONTRAST.
--- NOTE | 2018-12-18 10:48 | NUR ---
1010-TOOK PT TO RADIOLOGY FOR CT SCAN OF ABDOMEN AND PELVIS. 1048-BACK IN THE ROOM. PT IS SITTING ON THE CHAIR AT THIS TIME.
--- NOTE | 2018-12-18 14:20 | NUR ---
DR. LOMAS AT BEDSIDE TALKING TO FAMILY AND PATIENT.
--- NOTE | 2018-12-18 14:59 | NUR ---
PT IS BACK IN BED. PT THOUGHT HE MIGHT HAVE A BM. PT DID HAVE A LITTLE BIT OF SMEAR. PT HAS STATED HE IS TIRED.
--- NOTE | 2018-12-18 15:34 | NUR ---
ASSUMED CARE REPORT FROM SHAYNA GARDINER RN. FAMILY AT BEDSIDE. ORDER FROM DR. LOMAS FOR MOPRHINE TRAINING AND DEVELOPMENT HEAD.
--- NOTE | 2018-12-18 18:55 | NUR ---
PATIENT HAS USED 11 MG OF HIS MORPHINE (2 LOADING DOSE). HE HAS BEEN BOTHERED BY HICCUPS AND HAS BEEN TRYING TO SLEEP.
--- NOTE | 2018-12-18 19:49 | NUR ---
PATIENT REPORTS GOOD PAIN CONTROL WITH MORPHINE DRILLING AND PRODUCTION SUPERINTENDENT. REPORT GIVEN TO VICENTE CAMPUZANO.
--- NOTE | 2018-12-18 20:30 | NUR ---
ASSESSMENT ASSUMED CARE OF PT. PT RESTING QUIETLY, AWAKENS EASILY TO VERBAL STIMULI. DENIES PAIN PT STATES,"I'M NOT HAVING ANY PAIN NOW THAT I HAVE THIS BUTTON TO PUSH". PT USING PARKING LOT ATTENDANT AND CASHIER MORPHINE FOR PAIN CONTROL. A&O TO PLACE AND TIME. FAMILY AT BEDSIDE. LUNGS CLEAR BUT DECREASED IN THE BASES ON ROOMAIR. RESP EVEN AND NONLABORED. PT USING IS AND DOING C&DB WITH ENCOURAGMENT. HEART RATE IRREGULAR, AFIB IN THE 50'S CONTROLLED RATE. BP STABLE. BT+ ABD SOFT AND TENDER WITH WOUND VAC TO MIDLINE ABD. DRSG INTACT WITH SUCTION. NG TO LEFT NARE ON LIS WITH DARK MARROON SECRECTIONS DRAINING. PT TAKING ICE CHIPS. DENIES N/V. + FLATUS. DEJESUS CATH DRAINING YELLOW URINE. PICC LINE TO LEFT UPPER ARM WITH TPN AT 75 ML/HR AND HEPARIN AT 14 UNITS. SITE CLEAR WITH DRSG INTACT. POWER GLIDE TO RIGHT UPPER ARM WITH NS AT 10 ML/HR AND MORPHINE PARKING LOT ATTENDANT AND CASHIER. SITE CLEAR. PT REPOSITINED AND LINEN CHANGED. STERLING CARE DONE.
--- NOTE | 2018-12-19 | NUR ---
REASSESSMENT PT SLEEPING, AWAKENS EASILY TO VERBAL STIMULI. DENIES PAIN STATES,"IT FEELS SO GOOD TO BE ABLE TO SLEEP. I'M HAVING NO PAIN". LUNGS CLEAR BUT DECREASED IN THE BASES ON ROOMAIR. PT DOING C&DB AND USING IS WITH ASSIST. REPOSITIONED TO BACK WITH HOB UP. NG RETAPPED, DRAINAGE GREEN LIQUID IN TUBING. HEART RATE CONT IRREGULAR. BP STABLE. BT+ HYPOACTIVE. WOUND VAC TO ABD INTACT. BLOOD GLUCOSE CHECKED AND ANTIBIOTIC STARTED. PT BACK TO SLEEP QUICKLY
[2018-12-19 04:27] LABS: Magnesium, Blood 2.3 mg/dL (1.6-2.4); Phosphorus, Blood 4.1 mg/dL (2.5-4.9)
--- NOTE | 2018-12-19 05:46 | NUR ---
SHIFT SUMMARY PT SLEEPING, AWAKENS EASILY TO VERBAL STIMULI. PT ASSISTING WITH TURNING AND MOVING IN BED. TURNED Q2HRS. PT USING MORPHINE GUITAR MAKER FOR PAIN CONTROL WITH GOOD RESULTS. PT STATES,"I'M HAVING NO PAIN AND I'M ABLE TO GET SOME SLEEP". LUNGS CLEAR BUT DECREASED IN THE BASES ON ROOMAIR. PT ENCOURAGED TO C&DB ALSO TO USE IS. HEART RATE IRREGULAR- AFIB 50-70'S. BP STABLE. BT+ HYPOACTIVE. NG TO LIS WITH DARK GREEN SECRECTIONS. MIDLINE ABD INCISION WITH WOUND VAC INTACT WITH GOOD SUCTION. DENIES N/V. PT TAKING ICE CHIPS. PICC LINE TO LEFT UPPER ARM WITH TPN AT 75 ML/HR, NS TKO FOR ANTIBIOTIC AND HEPARIN AT 14 UNITS. POWER GLIDE TO RIGHT UPPER ARM WITH NS TKO AND MORPHINE GUITAR MAKER. DEJESUS CATH PATENT AND DRAINING YELLOW URINE. NO ACUTE CHANGE THROUGHOUT THE NIGHT. REPORT TO ON COMING NURSE.
--- NOTE | 2018-12-19 07:20 | NUR ---
ASSUMED CARE REPORT FROM VICENTE CAMPUZANO. PATIENT SLEEPING. HEPARIN CONTINUES AT SAME RATE. MORPHINE JOURNEYMAN SHEET METAL WORKER SHOWS 2 USED.
--- NOTE | 2018-12-19 08:05 | NUR ---
MD VISIT DR. HOBSON IN. ORDERS TO REMOVE DEJESUS.
--- NOTE | 2018-12-19 09:14 | NUR ---
PATIENT IN GOOD SPIRITS AFTER SLEEPING LAST NIGHT. DEJESUS CATHETER REMOVED. ABDOMINAL BINDER PLACED AND PATIENT ASSISTED TO RECLINER. USING HIS MORPHINE QUALITY CONTROL INSPECTOR HEADING NEEDED. ICE CHIPS. PASSING FLATUS. DARK GREEN LIQUID FROM NGT. VISITS FROM 2 SONS THIS AM. CALL FROM . PATIENT IS NOW SURGICAL STATUS WITH NO TELE.
--- NOTE | 2018-12-19 11:14 | NUR ---
CALLED DR. DUMONT ABOUT BRIGHT RED BLOOD IN STOOL. EXPECTED BECAUSE OF HAVING REMOVED A POLYP DURING HIS COLONOSCOPY
--- NOTE | 2018-12-19 12:45 | NUR ---
pt arrived to room 229 from icu pt in recliner chair pt has constant hiccups pt reports pain to abd 3/10 ngt clampped with dk brown liquid hooked to low int sx small amt out pt stated that he has no nausea wants to sit up for awhile taking in some ice chips his son at bedside
--- NOTE | 2018-12-19 14:24 | NUR ---
pt still sleeping in chair
--- NOTE | 2018-12-19 15:42 | NUR ---
LATE ENTRY: 1130 REPORT GIVEN TO VICENTE LIMON. PT WILL MOVE TO 229 WHEN ROOM IS CLEAN.
--- NOTE | 2018-12-19 16:29 | NUR ---
bladder scan 345 pt stated he does not have an urge to void yet will have pt stand and attempt to void in an hr or two
--- NOTE | 2018-12-19 18:24 | NUR ---
assisted back into tried to void again while pt was standing up still unable to go in/out cath 450 ml urine out
[2018-12-20 05:19] LABS: BASOPHILS ABSOLUTE AUTO 0.03 K/mm3 (0.00-0.23); BASOPHILS PERCENT AUTO 0 % (0-2); EOSINOPHILS ABSOLUTE AUTO 0.46 K/mm3 (0.00-0.68); EOSINOPHILS PERCENT AUTO 3 % (0-6); IMMATURE GRAN ABSOLUTE AUTO 1.41 K/mm3 (0.00-0.10); IMMATURE GRAN PERCENT AUTO 9 % (0-1); LYMPHOCYTES ABSOLUTE AUTO 0.82 K/mm3 (0.84-5.20); LYMPHOCYTES PERCENT AUTO 5 % (21-46); MONOCYTES ABSOLUTE AUTO 1.01 K/mm3 (0.16-1.47); MONOCYTES PERCENT AUTO 6 % (4-13); Mean Corpuscular HGB Conc 31.8 g/dL (31.5-36.5); Mean Corpuscular Volume 101 fL (80-100); NEUTROPHILS PERCENT AUTO 77 % (41-73); NRBC ABSOLUTE 0.09 K/mm3 (0.00-0.02); NRBC Auto 0.6 /100 WBC (0.0-0.2); Platelet Count 148 K/mm3 (150-400); RDW Coefficient Variation 14.2 % (11.7-14.2); RDW Standard Deviation 51.7 fL (35.1-46.3); Red Blood Cell Count 2.19 M/mm3 (4.30-5.90); White Blood Cell Count 16.03 K/mm3 (4.00-11.30)
[2018-12-20 05:35] LABS: Bun/Creatinine Ratio 40.9 (12.0-20.0); Calcium, Blood 7.6 mg/dL (8.5-10.1); Creatinine, Blood 1.32 mg/dL (0.60-1.20); Potassium, Blood 4.8 mmol/L (3.5-5.5)
[2018-12-20 05:37] LABS: BAND PERCENT MAN 5 % (0-8); BASOPHILS ABSOLUTE MAN 0.16 K/mm3 (0.00-0.23); BASOPHILS PERCENT MAN 1 % (0-2); EOSINOPHILS ABSOLUTE MAN 0.48 K/mm3 (0.00-0.68); EOSINOPHILS PERCENT MAN 3 % (0-6); LYMPHOCYTES ABSOLUTE MAN 0.64 K/mm3 (0.84-5.20); LYMPHOCYTES PERCENT MAN 4 % (21-46); METAMYELOCYTE ABSOLUTE MAN 0.32 K/mm3 (0.00-0.00); METAMYELOCYTE PERCENT MAN 2 % (0-0); MONOCYTES PERCENT MAN 5 % (4-13); MYELOCYTE ABSOLUTE MAN 0.32 K/mm3 (0.00-0.00); MYELOCYTE PERCENT MAN 2 % (0-0); NEUTROPHILS ABSOLUTE MAN 13.14 K/mm3 (1.96-9.15); PROMYELOCYTE ABSOLUTE MAN 0.16 K/mm3 (0.00-0.00); PROMYELOCYTE PERCENT MAN 1 % (0-0); SEG NEUTROPHILS PERCENT MAN 77 % (41-73); TOTAL CELLS COUNTED 100
--- NOTE | 2018-12-20 06:00 | NUR ---
SUMMARY PT WITH NO C/O NAUSEA TONIGHT. NO BM PASSED.PT REPORTS NO URGE TO VOID. BLADDER SCAN WAS OBTAINED FOR 445 AND STRAIGHT CATH WAS PLACED WITH 600 ML RETURN. PT CONT WITH HICCUPS. HOB REMAINS UP. PT REPORTS FAMILY RESOURCE SPECIALIST EFFECTIVE FOR PAIN CONTROL. WOUND VAC ITNACT WITH SX.
--- NOTE | 2018-12-20 07:43 | NUR ---
ICE CHIPS REQ GIVEN PT REPORTS ABD PAIN 11/05 NO NAUSEA AT THIS TIME STILL HAVING CONT HICCUPS PT STILL UNABLE TO VOID NO URGE TO VOID WILL MOBILIZE TO THE CHAIR IN AN HR AN ATTEMPT TO VOID WILL BLADDER SCAN IF UNABLE TO GO WILL PLACE DEJESUS AND CALL TO START BLADDER TRAINING
[2018-12-20 09:15] LABS: Hematocrit 21.4 % (37.0-53.0)
--- NOTE | 2018-12-20 10:25 | NUR ---
assisted pt oob to recliner chair mata cath placed earlier after talking with dr silverman to transfuse 1 unit prbc pt son at bedside
--- NOTE | 2018-12-20 11:26 | NUR ---
pt reports passing some flatus
--- NOTE | 2018-12-20 12:54 | NUR ---
DR PEREZ BY TO SEE PT
--- NOTE | 2018-12-20 15:57 | NUR ---
ASSISTED PT INTO BED
[2018-12-20 17:06] LABS: Hematocrit 24.3 % (37.0-53.0)
--- NOTE | 2018-12-20 17:58 | NUR ---
PT FAMILY AT BEDSIDE REVIEWED LABS POST TRANSFUSION PT ASKED WHEN HE CAN START CL PT ONLY TAKING IN SMALL AMTS OF ICE CHIPS WITH NGT ON LOW INT SX
--- NOTE | 2018-12-21 04:40 | NUR ---
PT HAD NO ACUTE CHANGES T/O NIGHT; VSS. LUNGS DIM IN BASES, PT DOES REP OCC SOB R/T POSITIONING. PT DOES HAVE PROD COUGH, IS USING YANKAUER SX AT BEDSIDE. NGT DRNG DARK GREEN FLUID. PT DRESSINGS INTACT. PT IS PASSING FLATUS, FOELY PATANT. PT IS ASSISTING W/REPOSIGIONING IN BED, IS USING CALL LIGHT FOR ASSISTANCE, WILL CONT TO MONITOR UNTIL REP GIVEN TO ONCOMING RN.
[2018-12-21 05:23] LABS: Hematocrit 23.3 % (37.0-53.0); Hemoglobin 7.6 g/dL (13.5-17.5); Mean Corpuscular HGB 32.3 pg (26.0-34.0); Mean Corpuscular HGB Conc 32.6 g/dL (31.5-36.5); Mean Corpuscular Volume 99 fL (80-100); Mean Platelet Volume 11.8 fL (9.1-12.4); NRBC ABSOLUTE 0.13 K/mm3 (0.00-0.02); NRBC Auto 0.8 /100 WBC (0.0-0.2); Platelet Count 170 K/mm3 (150-400); RDW Coefficient Variation 15.9 % (11.7-14.2); RDW Standard Deviation 56.3 fL (35.1-46.3); Red Blood Cell Count 2.35 M/mm3 (4.30-5.90); White Blood Cell Count 16.13 K/mm3 (4.00-11.30)
[2018-12-21 06:13] LABS: Bun/Creatinine Ratio 40.3 (12.0-20.0); Calcium, Blood 7.6 mg/dL (8.5-10.1); Creatinine, Blood 1.44 mg/dL (0.60-1.20); Potassium, Blood 4.9 mmol/L (3.5-5.5)
[2018-12-21 06:21] LABS: BAND PERCENT MAN 1 % (0-8); BASOPHILS PERCENT MAN 0 % (0-2); EOSINOPHILS PERCENT MAN 0 % (0-6); LYMPHOCYTES ABSOLUTE MAN 1.45 K/mm3 (0.84-5.20); LYMPHOCYTES PERCENT MAN 9 % (21-46); METAMYELOCYTE ABSOLUTE MAN 0.16 K/mm3 (0.00-0.00); METAMYELOCYTE PERCENT MAN 1 % (0-0); MONOCYTES ABSOLUTE MAN 0.64 K/mm3 (0.16-1.47); MONOCYTES PERCENT MAN 4 % (4-13); MYELOCYTE ABSOLUTE MAN 0.32 K/mm3 (0.00-0.00); MYELOCYTE PERCENT MAN 2 % (0-0); NEUTROPHILS ABSOLUTE MAN 13.38 K/mm3 (1.96-9.15); PROMYELOCYTE ABSOLUTE MAN 0.16 K/mm3 (0.00-0.00); PROMYELOCYTE PERCENT MAN 1 % (0-0); SEG NEUTROPHILS PERCENT MAN 82 % (41-73); TOTAL CELLS COUNTED 100
--- NOTE | 2018-12-21 18:20 | NUR ---
SHIFT SUMMARY PT HAS BEEN WITHDRAWN TODAY BUT RESPONDS APPROPRIATELY. NO CHANGES DURING MY SHIFT.
[2018-12-22 06:50] LABS: Hematocrit 22.7 % (37.0-53.0); Hemoglobin 7.2 g/dL (13.5-17.5); Mean Corpuscular HGB 32.3 pg (26.0-34.0); Mean Corpuscular HGB Conc 31.7 g/dL (31.5-36.5); Mean Platelet Volume 11.8 fL (9.1-12.4); NRBC ABSOLUTE 0.11 K/mm3 (0.00-0.02); NRBC Auto 0.7 /100 WBC (0.0-0.2); Platelet Count 208 K/mm3 (150-400); RDW Coefficient Variation 15.5 % (11.7-14.2); RDW Standard Deviation 57.5 fL (35.1-46.3); Red Blood Cell Count 2.23 M/mm3 (4.30-5.90)
[2018-12-22 07:01] LABS: Calcium, Blood 7.9 mg/dL (8.5-10.1); Creatinine, Blood 1.42 mg/dL (0.60-1.20); Potassium, Blood 4.7 mmol/L (3.5-5.5)
[2018-12-22 08:02] LABS: Mean Corpuscular Volume 102 fL (80-100)
[2018-12-22 08:15] LABS: BAND PERCENT MAN 1 % (0-8); BASOPHILS PERCENT MAN 0 % (0-2); EOSINOPHILS ABSOLUTE MAN 0.14 K/mm3 (0.00-0.68); EOSINOPHILS PERCENT MAN 1 % (0-6); LYMPHOCYTES ABSOLUTE MAN 0.74 K/mm3 (0.84-5.20); LYMPHOCYTES PERCENT MAN 5 % (21-46); METAMYELOCYTE ABSOLUTE MAN 0.44 K/mm3 (0.00-0.00); METAMYELOCYTE PERCENT MAN 3 % (0-0); MONOCYTES ABSOLUTE MAN 1.49 K/mm3 (0.16-1.47); MONOCYTES PERCENT MAN 10 % (4-13); MYELOCYTE ABSOLUTE MAN 0.29 K/mm3 (0.00-0.00); MYELOCYTE PERCENT MAN 2 % (0-0); NEUTROPHILS ABSOLUTE MAN 11.77 K/mm3 (1.96-9.15); SEG NEUTROPHILS PERCENT MAN 78 % (41-73); TOTAL CELLS COUNTED 100
--- NOTE | 2018-12-22 19:33 | NUR ---
SHIFT SUMMARY PT HAS BEEN WHEEZING T/O SHIFT. WAS WORSE AFTER UNIT OF PRBC, EVEN AFTER BREATHING TX. MD CALLED AND NEW ORDERS RECIEVED. PT STATES HE FEELS BETTER TONIGHT AT SHIFT CHANGE BUT CONTINUES TO BE WHEEZY. COUGHS AND DEEP BREAATHES WHEN ASKED TO. USES IS. PAIN WELL MANAGED. NGT HAD INCREASED OUTPUT TODAY.
--- NOTE | 2018-12-23 03:48 | NUR ---
AT ABOUT 1945 HEAD TO TOE ASSESSMENT COMPLETED AND BRUISED AND SWOLLEN L UPPER ARM NOTED SURROUNDING PICC LINE SITE. HANNY KENNY RN CAME TO BEDSIDE TO ALSO ASSESS ARM. PER VICENTE KENNY BRUISING HAS GONE DOWN, BUT THE SWELLING IN ARM HAS INCREASED. TPN HELD AT THIS TIME AND HEPARIN DRIP LINE MOVED TO PT'S R ARM POWERGLIDE LINE. ADRIANO LANGSTON NOTIFIED. MORPHINE TECHNOLOGY LEAD NOT COMPATABLE WITH HEPARIN. NEW ORDER FOR PRN IV MORPHINE,TECHNOLOGY LEAD MORPHINE ETELVINA. NO FLUIDS RUNNING THROUGH PICC LINE. WILL CTM PT STATUS
--- NOTE | 2018-12-23 04:29 | NUR ---
SUMMARY: SEE PREVIOUS NOTE. NO ACUTE CHANGE TONIGHT. PT SLEPT WELL, MEDICATED X2 WITH 1MG MORPHINE. TURNED Q2 HOURS. MINIMAL OUTPUT FROM NG. PT HAS DENIED NAUSEA. PT HAD SMEAR OF STOOL, APPEARED SLIGHTLY BLOODY. SURGICAL SITE WNL. SWELLING AT L ARM ABOUT THE SAME SHIFT START, ARM ELEVATED. NO ACUTE SAFETY CONCERNS AT THIS TIME. WILL CTM AND REPORT TO DAY RN.
[2018-12-23 06:33] LABS: BASOPHILS ABSOLUTE AUTO 0.05 K/mm3 (0.00-0.23); BASOPHILS PERCENT AUTO 0 % (0-2); EOSINOPHILS ABSOLUTE AUTO 0.12 K/mm3 (0.00-0.68); EOSINOPHILS PERCENT AUTO 1 % (0-6); Hematocrit 24.9 % (37.0-53.0); Hemoglobin 8.1 g/dL (13.5-17.5); IMMATURE GRAN ABSOLUTE AUTO 0.67 K/mm3 (0.00-0.10); IMMATURE GRAN PERCENT AUTO 5 % (0-1); LYMPHOCYTES ABSOLUTE AUTO 0.59 K/mm3 (0.84-5.20); LYMPHOCYTES PERCENT AUTO 4 % (21-46); MONOCYTES ABSOLUTE AUTO 1.59 K/mm3 (0.16-1.47); MONOCYTES PERCENT AUTO 11 % (4-13); Mean Corpuscular HGB 32.4 pg (26.0-34.0); Mean Corpuscular HGB Conc 32.5 g/dL (31.5-36.5); Mean Corpuscular Volume 100 fL (80-100); Mean Platelet Volume 11.1 fL (9.1-12.4); NEUTROPHILS ABSOLUTE AUTO 11.85 K/mm3 (1.96-9.15); NEUTROPHILS PERCENT AUTO 80 % (41-73); NRBC Auto 0.7 /100 WBC (0.0-0.2); Platelet Count 239 K/mm3 (150-400); RDW Coefficient Variation 15.8 % (11.7-14.2); RDW Standard Deviation 56.1 fL (35.1-46.3); White Blood Cell Count 14.87 K/mm3 (4.00-11.30)
[2018-12-23 06:36] LABS: Albumin, Blood 1.7 g/dL (3.4-5.0); Albumin/Globulin Ratio 0.4 (0.8-1.8); Bilirubin, Total 1.1 mg/dL (0.1-1.0); Bun/Creatinine Ratio 41.8 (12.0-20.0); Calcium, Blood 7.6 mg/dL (8.5-10.1); Creatinine, Blood 1.41 mg/dL (0.60-1.20); Globulin, Blood 3.9 g/dL (2.2-4.0); Magnesium, Blood 2.1 mg/dL (1.6-2.4); Potassium, Blood 4.7 mmol/L (3.5-5.5); Total Protein, Blood 5.6 g/dL (6.4-8.2)
--- NOTE | 2018-12-23 12:30 | NUR ---
NG TUBE CLAMPED; PT EDUCATED.
--- NOTE | 2018-12-23 17:17 | NUR ---
ABD FEELING BLOATED; NGT CONNECTED AND SUCTION TUNRED ON; WILL MOITOR OUTPUT.
--- NOTE | 2018-12-23 18:33 | NUR ---
SHIFT SUMMARY PT HAS FELT BETTER TODAY. NO WHEEZES NOTED UNLESS LAYING FLAT FOR RESPOSITIONING. PT DEEP BREATHES AND COUGHS WELL. PICC LINE REMOVED DUE TO HARDNESS/SWELLING. ARM HAS BEEN SOFT AND NONTENDER SINCE REMOVAL. DISCUSSED BM'S & SMEAR WITH DR LOMAS, WHICH HE SAID HE SAID WAS EXPECTED. PT DID NOT TOLERATE NGT CLAMPED FOR 6 HOURS ALTHOUGH < 25 MLS WAS OUT AFTER REHOOKED TO SUCTION. WILL LEAVE MGT IN PLACE UNTIL TOMORROW AFTER DISCUSSION WITH SURGEON.
[2018-12-23 20:36] LABS: Adenovirus F 40/41 Not Detected (NOT DETECT); Astrovirus Not Detected (NOT DETECT); Campylobacter Sp Not Detected (NOT DETECT); Cryptosporidium Not Detected (NOT DETECT); Cyclospora Cayetanensis Not Detected (NOT DETECT); E. Coli O157 Not Detected (NOT DETECT); Entamoeba Histolytica Not Detected (NOT DETECT); Enteroaggregative E. coli-EAEC Not Detected (NOT DETECT); Enteropathogenic E. coli-EPEC Not Detected (NOT DETECT); Enterotoxigenic E. coli-ETEC Not Detected (NOT DETECT); Giardia Lamblia Not Detected (NOT DETECT); Norovirus GI/GII Not Detected (NOT DETECT); Plesiomonas Shigelloides Not Detected (NOT DETECT); Rotavirus A Not Detected (NOT DETECT); Salmonella Sp Not Detected (NOT DETECT); Sapovirus Not Detected (NOT DETECT); Shiga Toxin-prod E. coli-STEC Not Detected (NOT DETECT); Shigella/Enteroin E. coli-EIEC Not Detected (NOT DETECT); Vibrio Cholerae Not Detected (NOT DETECT); Vibrio Sp Not Detected (NOT DETECT); Yersinia Enterocolitica Not Detected (NOT DETECT)
[2018-12-24 06:12] LABS: Albumin, Blood 1.8 g/dL (3.4-5.0); Albumin/Globulin Ratio 0.5 (0.8-1.8); Bilirubin, Total 0.9 mg/dL (0.1-1.0); Calcium, Blood 7.8 mg/dL (8.5-10.1); Creatinine, Blood 1.54 mg/dL (0.60-1.20); Globulin, Blood 3.9 g/dL (2.2-4.0); Potassium, Blood 3.9 mmol/L (3.5-5.5); Total Protein, Blood 5.7 g/dL (6.4-8.2)
[2018-12-24 06:24] LABS: Hematocrit 23.7 % (37.0-53.0); Hemoglobin 7.6 g/dL (13.5-17.5)
[2018-12-24 06:39] LABS: BASOPHILS ABSOLUTE AUTO 0.03 K/mm3 (0.00-0.23); BASOPHILS PERCENT AUTO 0 % (0-2); EOSINOPHILS ABSOLUTE AUTO 0.17 K/mm3 (0.00-0.68); EOSINOPHILS PERCENT AUTO 2 % (0-6); IMMATURE GRAN ABSOLUTE AUTO 0.45 K/mm3 (0.00-0.10); IMMATURE GRAN PERCENT AUTO 4 % (0-1); LYMPHOCYTES ABSOLUTE AUTO 0.65 K/mm3 (0.84-5.20); LYMPHOCYTES PERCENT AUTO 6 % (21-46); MONOCYTES ABSOLUTE AUTO 1.15 K/mm3 (0.16-1.47); MONOCYTES PERCENT AUTO 10 % (4-13); Mean Corpuscular HGB 32.1 pg (26.0-34.0); Mean Corpuscular HGB Conc 31.9 g/dL (31.5-36.5); Mean Corpuscular Volume 100 fL (80-100); Mean Platelet Volume 11.1 fL (9.1-12.4); NEUTROPHILS ABSOLUTE AUTO 9.18 K/mm3 (1.96-9.15); NEUTROPHILS PERCENT AUTO 79 % (41-73); NRBC ABSOLUTE 0.06 K/mm3 (0.00-0.02); NRBC Auto 0.5 /100 WBC (0.0-0.2); Platelet Count 253 K/mm3 (150-400); RDW Coefficient Variation 15.6 % (11.7-14.2); RDW Standard Deviation 55.9 fL (35.1-46.3); Red Blood Cell Count 2.37 M/mm3 (4.30-5.90); White Blood Cell Count 11.63 K/mm3 (4.00-11.30)
--- NOTE | 2018-12-24 12:05 | NUR ---
SPOKE WITH DR LOMAS RE: 200 ML DARK BROWN LIQUID PASSED RECTALLY. NO NEW ORDERS.
--- NOTE | 2018-12-24 13:00 | NUR ---
DOCTOR CESILIA IN TO SEE; NG TUBE D/C'D. PATIENT HAS BEEN UP TO CHAIR FOR > AN HOUR; NOW BACK TO BED. DENIES PAIN OR ABD DISCOMFORT.
--- NOTE | 2018-12-24 13:50 | NUR ---
HEPARIN GTT ADJUSTED PER PHARMACY ORDER.
--- NOTE | 2018-12-24 17:36 | NUR ---
SHIFT SUMMARY PATIENT UP IN CHAIR LATE THIS AM, TOLERATED WELL. PATIENT TAKING CL W/O C/O PAIN OR NAUSEA. SLEEPING INTERMITANTLY THIS AFTERNOON. IVF INFUSING PER ORDER. HEPARIN GTT INFUSING AT 17 U/ HR (26.2 ML/HR.) VSS. NO C/O. FAMILY IN TO SEE.
--- NOTE | 2018-12-25 06:50 | NUR ---
SUMMARY HEP DRIP CONTINUED LABS NEXT SCHED FOR 0800. PT CONT WITH SOB WITH ACTIVITY. DR LOMAS HER THIS M AND AWARE. PT IS DECONDITIONED.I ASKED DR ABOUT POSSIBLE PT CONSULT AND ? ANJELICA ALTHOUGH PT WITH HX RETENTION AND IS ON IV LASIX WITH GENERALIZED EDEMA. HE WILL DEFER THIS TO HOSPITLIST.PT TOLERATING CLR LIQ PO. HAD LIQ BM THIS AM WITH NO BLOODY APPEARANCE.
[2018-12-25 08:35] LABS: BASOPHILS ABSOLUTE AUTO 0.03 K/mm3 (0.00-0.23); BASOPHILS PERCENT AUTO 0 % (0-2); EOSINOPHILS ABSOLUTE AUTO 0.15 K/mm3 (0.00-0.68); EOSINOPHILS PERCENT AUTO 1 % (0-6); Hematocrit 25.7 % (37.0-53.0); Hemoglobin 8.2 g/dL (13.5-17.5); IMMATURE GRAN ABSOLUTE AUTO 0.36 K/mm3 (0.00-0.10); IMMATURE GRAN PERCENT AUTO 3 % (0-1); LYMPHOCYTES ABSOLUTE AUTO 0.69 K/mm3 (0.84-5.20); LYMPHOCYTES PERCENT AUTO 7 % (21-46); MONOCYTES ABSOLUTE AUTO 1.08 K/mm3 (0.16-1.47); MONOCYTES PERCENT AUTO 10 % (4-13); Mean Corpuscular HGB Conc 31.9 g/dL (31.5-36.5); Mean Corpuscular Volume 100 fL (80-100); Mean Platelet Volume 11.3 fL (9.1-12.4); NEUTROPHILS ABSOLUTE AUTO 8.32 K/mm3 (1.96-9.15); NEUTROPHILS PERCENT AUTO 78 % (41-73); NRBC ABSOLUTE 0.05 K/mm3 (0.00-0.02); NRBC Auto 0.5 /100 WBC (0.0-0.2); Platelet Count 269 K/mm3 (150-400); RDW Coefficient Variation 15.4 % (11.7-14.2); RDW Standard Deviation 55.1 fL (35.1-46.3); Red Blood Cell Count 2.56 M/mm3 (4.30-5.90); White Blood Cell Count 10.63 K/mm3 (4.00-11.30)
--- NOTE | 2018-12-25 12:45 | NUR ---
HEPARIN GTT STOPPED AT THIS TIME PER ORDER. PATIENT TOLERATED CL PO FOR AM MEAL, THEN STATED HE WAS 'FULL' BUT DENIED PAIN/NAUSEA. TOOK VERY LITTLE FL LUNCH. PT IN THIS AM, PATIENT ABLE TO STAND AND DO EXERCISES IN CHAIR. NO C/O AT THIS TIME. SON IN TO SEE.
--- NOTE | 2018-12-25 14:30 | NUR ---
FC D/C'D AT THIS TIME. WILL MONITOR.
--- NOTE | 2018-12-25 19:01 | NUR ---
SHIFT SUMMARY PATIENT TOOK MOST OF CLEAR LIQUID TRAY THIS AM, THOUGH CAUTIONED TO TAKE VERY SLOWLY. HE THEN C/O FEELING DISTENDED. DECLINED LUNCH AND DINNER TRAYS. NOW STATES HE IS FEELING LESS DISTENDED. DENIED NAUSEA, PAIN. UP TO CHAIR AND WORKED W/PT X 2, DOING EXERCISES; VERY EXHAUSTED AFTERWARDS. ASSISTED WITH URINAL THIS MONSE, MISSED, VOIDED IN ATTENDS. HAD SMALL BM X2, BROWN. MEDICATED FOR HICCUPS X 1. FAMILY IN TO SEE T/O SHIFT.
[2018-12-26 04:23] LABS: BASOPHILS ABSOLUTE AUTO 0.03 K/mm3 (0.00-0.23); BASOPHILS PERCENT AUTO 0 % (0-2); EOSINOPHILS PERCENT AUTO 1 % (0-6); Hematocrit 24.2 % (37.0-53.0); Hemoglobin 7.6 g/dL (13.5-17.5); IMMATURE GRAN ABSOLUTE AUTO 0.26 K/mm3 (0.00-0.10); IMMATURE GRAN PERCENT AUTO 2 % (0-1); LYMPHOCYTES ABSOLUTE AUTO 0.76 K/mm3 (0.84-5.20); LYMPHOCYTES PERCENT AUTO 7 % (21-46); MONOCYTES ABSOLUTE AUTO 0.95 K/mm3 (0.16-1.47); MONOCYTES PERCENT AUTO 9 % (4-13); Mean Corpuscular HGB 31.3 pg (26.0-34.0); Mean Corpuscular HGB Conc 31.4 g/dL (31.5-36.5); Mean Corpuscular Volume 100 fL (80-100); NEUTROPHILS ABSOLUTE AUTO 8.53 K/mm3 (1.96-9.15); NEUTROPHILS PERCENT AUTO 80 % (41-73); NRBC ABSOLUTE 0.03 K/mm3 (0.00-0.02); NRBC Auto 0.3 /100 WBC (0.0-0.2); Platelet Count 244 K/mm3 (150-400); RDW Coefficient Variation 15.2 % (11.7-14.2); RDW Standard Deviation 54.7 fL (35.1-46.3); Red Blood Cell Count 2.43 M/mm3 (4.30-5.90); White Blood Cell Count 10.63 K/mm3 (4.00-11.30)
[2018-12-26 04:42] LABS: Bun/Creatinine Ratio 42.5 (12.0-20.0); Calcium, Blood 7.6 mg/dL (8.5-10.1); Creatinine, Blood 1.27 mg/dL (0.60-1.20); Potassium, Blood 3.8 mmol/L (3.5-5.5)
[2018-12-27 04:14] LABS: BASOPHILS ABSOLUTE AUTO 0.02 K/mm3 (0.00-0.23); BASOPHILS PERCENT AUTO 0 % (0-2); EOSINOPHILS ABSOLUTE AUTO 0.12 K/mm3 (0.00-0.68); EOSINOPHILS PERCENT AUTO 1 % (0-6); Hematocrit 24.4 % (37.0-53.0); Hemoglobin 7.6 g/dL (13.5-17.5); IMMATURE GRAN ABSOLUTE AUTO 0.29 K/mm3 (0.00-0.10); IMMATURE GRAN PERCENT AUTO 3 % (0-1); LYMPHOCYTES ABSOLUTE AUTO 0.58 K/mm3 (0.84-5.20); LYMPHOCYTES PERCENT AUTO 6 % (21-46); MONOCYTES ABSOLUTE AUTO 0.85 K/mm3 (0.16-1.47); MONOCYTES PERCENT AUTO 8 % (4-13); Mean Corpuscular HGB 31.3 pg (26.0-34.0); Mean Corpuscular HGB Conc 31.1 g/dL (31.5-36.5); Mean Corpuscular Volume 100 fL (80-100); NEUTROPHILS ABSOLUTE AUTO 8.24 K/mm3 (1.96-9.15); NEUTROPHILS PERCENT AUTO 82 % (41-73); NRBC ABSOLUTE 0.03 K/mm3 (0.00-0.02); NRBC Auto 0.3 /100 WBC (0.0-0.2); Platelet Count 249 K/mm3 (150-400); RDW Coefficient Variation 14.8 % (11.7-14.2); RDW Standard Deviation 53.7 fL (35.1-46.3); Red Blood Cell Count 2.43 M/mm3 (4.30-5.90)
[2018-12-27 04:31] LABS: Albumin, Blood 1.7 g/dL (3.4-5.0); Anion Gap 8 mmol/L (6-16); Blood Urea Nitrogen 51 mg/dL (8-24); Bun/Creatinine Ratio 40.8 (12.0-20.0); CO2, Blood 22 mmol/L (21-32); Calcium, Blood 7.6 mg/dL (8.5-10.1); Chloride, Blood 110 mmol/L (98-108); Creatinine, Blood 1.25 mg/dL (0.60-1.20); Glomerular Filtration Rate 58 (60-); Glucose, Blood 142 mg/dL (70-99); Magnesium, Blood 2.4 mg/dL (1.6-2.4); Potassium, Blood 4.1 mmol/L (3.5-5.5); Sodium, Blood 140 mmol/L (136-145)
--- NOTE | 2018-12-27 18:40 | NUR ---
SHIFT SUMMARY PT HAS DONE WELL THIS SHIFT. UP WITH THERAPY AND WAS UP TO CHAIR FOR MAJORITY OF SHIFT. MIDLINE DRESSING C/D/I. ADVANCED TO REGULAR DIET THIS EVENING, TOLERATED WELL. DENIES PAIN.
[2018-12-28 05:00] LABS: BASOPHILS ABSOLUTE AUTO 0.01 K/mm3 (0.00-0.23); BASOPHILS PERCENT AUTO 0 % (0-2); EOSINOPHILS ABSOLUTE AUTO 0.13 K/mm3 (0.00-0.68); EOSINOPHILS PERCENT AUTO 2 % (0-6); Hematocrit 24.1 % (37.0-53.0); Hemoglobin 7.3 g/dL (13.5-17.5); IMMATURE GRAN ABSOLUTE AUTO 0.19 K/mm3 (0.00-0.10); IMMATURE GRAN PERCENT AUTO 2 % (0-1); LYMPHOCYTES ABSOLUTE AUTO 0.47 K/mm3 (0.84-5.20); LYMPHOCYTES PERCENT AUTO 5 % (21-46); MONOCYTES PERCENT AUTO 8 % (4-13); Mean Corpuscular HGB 30.4 pg (26.0-34.0); Mean Corpuscular HGB Conc 30.3 g/dL (31.5-36.5); Mean Corpuscular Volume 100 fL (80-100); NEUTROPHILS ABSOLUTE AUTO 7.32 K/mm3 (1.96-9.15); NEUTROPHILS PERCENT AUTO 83 % (41-73); NRBC ABSOLUTE 0.04 K/mm3 (0.00-0.02); NRBC Auto 0.5 /100 WBC (0.0-0.2); Platelet Count 227 K/mm3 (150-400); RDW Coefficient Variation 14.6 % (11.7-14.2); RDW Standard Deviation 53.1 fL (35.1-46.3); White Blood Cell Count 8.82 K/mm3 (4.00-11.30)
[2018-12-28 05:26] LABS: Albumin, Blood 1.8 g/dL (3.4-5.0); Anion Gap 9 mmol/L (6-16); Blood Urea Nitrogen 46 mg/dL (8-24); Bun/Creatinine Ratio 37.7 (12.0-20.0); CO2, Blood 21 mmol/L (21-32); Calcium, Blood 7.6 mg/dL (8.5-10.1); Chloride, Blood 110 mmol/L (98-108); Creatinine, Blood 1.22 mg/dL (0.60-1.20); Glomerular Filtration Rate 60 (60-); Glucose, Blood 135 mg/dL (70-99); Magnesium, Blood 2.3 mg/dL (1.6-2.4); Phosphorus, Blood 3.8 mg/dL (2.5-4.9); Potassium, Blood 4.2 mmol/L (3.5-5.5); Sodium, Blood 140 mmol/L (136-145)
--- NOTE | 2018-12-28 06:39 | NUR ---
SHIFT SUMMARY: NO ACUTE CHANGES THIS SHIFT. 1 PER ASSIST TO BATHROOM; BED MINOR PER REQUEST. PT HAS SEVERAL LIQUID BM'S; C DIFF NEG. ON ROOM AIR. SOB c EXERTION. PT ADVANCED FROM FULL LIQUID TO REGULAR; TOLERATING WELL; DENIES N/V. MIDLINE INCISION C/D/I. PT DENIES PAIN OR DISCOMFORT. MILD ABDOMEN DISTENTION. CLINIMIX RUNNING @ 100 ML/HR. H/H LOW THIS AM AT 7.3/24. NO OTHER CHANGES TO REPORT. WILL CONT TO MONITOR AND PROVIDE CARE UNTIL PRESUMED BY ONCOMING RN.
--- NOTE | 2018-12-28 07:45 | NUR ---
dr gudino by to see pt dressing removed abd soft no pain no nausea having soft brown eddy stool small in size but mult reported per pt dr gudino req a new dressing to be applied if pt is wearing attends to keep it dry to prevent soiling it pt stated his hiccups went away a few days ago bibiana his reg diet
--- NOTE | 2018-12-28 10:24 | NUR ---
ss at bedside asking pt about snf placement pt refusing to go stated he has family that can help at home
--- NOTE | 2018-12-28 11:13 | NUR ---
pt oob to bathroom having liquid med size bm
--- NOTE | 2018-12-28 11:37 | NUR ---
pt oob into chair dr king by to see pt pt to have a unit prbc plan to discharge home tomorrow
--- NOTE | 2018-12-28 13:17 | NUR ---
1 unti prbc infusing
--- NOTE | 2018-12-28 14:19 | NUR ---
pt resting sitting up in recliner chair
[2018-12-29 05:31] LABS: Hematocrit 27.2 % (37.0-53.0); Hemoglobin 8.7 g/dL (13.5-17.5)
--- NOTE | 2018-12-29 05:33 | NUR ---
S/P EXP LAP WITH RESECTION. NO SIG CHANGES. HAS BEEN GETTING UP WITH JUST ONE PERSON ASSIST. DENIES ANY PAIN. STILL NEEDS TO INCREASE PO INTAKE. CONT IV LIPIDS/CLINIMIX. PT IS HOPEFULL TO DC HOME SOON. H/H HAS IMPROVED THIS AM. CALL LIGHT IN REACH.
[2018-12-29 05:49] LABS: Albumin, Blood 1.8 g/dL (3.4-5.0); Anion Gap 8 mmol/L (6-16); Blood Urea Nitrogen 44 mg/dL (8-24); Bun/Creatinine Ratio 36.7 (12.0-20.0); CO2, Blood 22 mmol/L (21-32); Calcium, Blood 7.6 mg/dL (8.5-10.1); Chloride, Blood 110 mmol/L (98-108); Glomerular Filtration Rate >60 (60-); Glucose, Blood 133 mg/dL (70-99); Phosphorus, Blood 3.5 mg/dL (2.5-4.9); Potassium, Blood 4.4 mmol/L (3.5-5.5); Sodium, Blood 140 mmol/L (136-145)
--- NOTE | 2018-12-29 07:11 | NUR ---
pt awake sitting up in recliner assited to bathroom had loose bm
--- NOTE | 2018-12-29 08:00 | NUR ---
dr gudino by to see pt multiple loose bm thru the night unsure if pt should discharge today also talked with dr gudino re poor appeatite est 25 % yesterday for all meals worried about re admission
--- NOTE | 2018-12-29 10:37 | NUR ---
pt working with physical therapy
--- NOTE | 2018-12-29 11:23 | NUR ---
dietary by to see pt
--- NOTE | 2018-12-29 14:37 | NUR ---
PT REQ STRAWBERRY ENSURE INSTEAD OF NGOZI STATED HE TRIED TO EAT MORE LUCH AND FEELS BLOATED 2 HRS AFTER NO BM YET NO NAUSEA
--- NOTE | 2018-12-29 17:46 | NUR ---
dr king by to see pt
[2018-12-30 04:54] LABS: BASOPHILS ABSOLUTE AUTO 0.01 K/mm3 (0.00-0.23); BASOPHILS PERCENT AUTO 0 % (0-2); EOSINOPHILS ABSOLUTE AUTO 0.04 K/mm3 (0.00-0.68); EOSINOPHILS PERCENT AUTO 1 % (0-6); Hematocrit 40.4 % (37.0-53.0); Hemoglobin 12.9 g/dL (13.5-17.5); IMMATURE GRAN ABSOLUTE AUTO 0.06 K/mm3 (0.00-0.10); IMMATURE GRAN PERCENT AUTO 1 % (0-1); LYMPHOCYTES ABSOLUTE AUTO 0.25 K/mm3 (0.84-5.20); LYMPHOCYTES PERCENT AUTO 6 % (21-46); MONOCYTES ABSOLUTE AUTO 0.41 K/mm3 (0.16-1.47); MONOCYTES PERCENT AUTO 9 % (4-13); Mean Corpuscular HGB 31.2 pg (26.0-34.0); Mean Corpuscular HGB Conc 31.9 g/dL (31.5-36.5); Mean Corpuscular Volume 98 fL (80-100); Mean Platelet Volume 11.1 fL (9.1-12.4); NEUTROPHILS ABSOLUTE AUTO 3.77 K/mm3 (1.96-9.15); NEUTROPHILS PERCENT AUTO 83 % (41-73); NRBC ABSOLUTE 0.02 K/mm3 (0.00-0.02); NRBC Auto 0.4 /100 WBC (0.0-0.2); Platelet Count 127 K/mm3 (150-400); RDW Coefficient Variation 15.9 % (11.7-14.2); RDW Standard Deviation 56.6 fL (35.1-46.3); Red Blood Cell Count 4.13 M/mm3 (4.30-5.90); White Blood Cell Count 4.54 K/mm3 (4.00-11.30)
[2018-12-30 05:09] LABS: Albumin, Blood 1.8 g/dL (3.4-5.0); Anion Gap 10 mmol/L (6-16); Blood Urea Nitrogen 45 mg/dL (8-24); Bun/Creatinine Ratio 38.5 (12.0-20.0); CO2, Blood 21 mmol/L (21-32); Calcium, Blood 7.6 mg/dL (8.5-10.1); Chloride, Blood 108 mmol/L (98-108); Creatinine, Blood 1.17 mg/dL (0.60-1.20); Glomerular Filtration Rate >60 (60-); Glucose, Blood 138 mg/dL (70-99); Magnesium, Blood 2.2 mg/dL (1.6-2.4); Potassium, Blood 4.5 mmol/L (3.5-5.5); Sodium, Blood 139 mmol/L (136-145)
--- NOTE | 2018-12-30 07:30 | NUR ---
SHIFT SUMMARY PT REMAINS ON FLOOR POST EX LAP AND SMALL BOWEL RESECTION. HE IS A&O, ABLE TO MAKE NEEDS KNOWN. MIDLINE INCISION HAS A MEDIPORE DRESSING, C/D/I. PT RUNNING CLINIMIX AND LIPIDS PER ORDERS. POWERGLIDE IN PLACE. PT USES BSC WITH 1 ASSIST. NO PAIN MEDS REQUIRED THIS SHIFT. WILL CTM UNTIL PASS TO NEXT SHIFT.
--- NOTE | 2018-12-30 17:08 | NUR ---
SHIFT SUMMARY NO ACUTE CHANGES THIS SHIFT. PT DENIES PAIN. MIDLINE INCISION CDI. UP IN CHAIR FOR MOST OF SHIFT. SBA USING WALKER TO RESTROOM. ENCOURAGING PO INTAKE. CLINIMIX AND LIPIDS PER ORDERS. AT BEDSIDE FOR SUPPORT. USES CALL LIGHT APPROPRIATELY.
[2018-12-31 06:08] LABS: Hemoglobin 7.8 g/dL (13.5-17.5)
--- NOTE | 2018-12-31 06:17 | NUR ---
SHIFT SUMMARY: NO ACUTE CHANGES OVER NIGHT. PT DENIES N/V AND PAIN. PASSING GAS AND REPORTS HAVING SOFT BM YESTERDAY. ENC PT TO INCREASE PO INTAKE AND AMBULATE. PT APPEARS TO BE RECEPTIVE AND MOTIVATED. LIPIDS AND CLINIMIX INFUSING PER EMAR. PT USING URINAL AT BEDSIDE. VOIDING WELL. PT PLEASENT AND ANXIOUS TO DISCHARGE.
[2018-12-31 06:28] LABS: Anion Gap 9 mmol/L (6-16); Blood Urea Nitrogen 43 mg/dL (8-24); Bun/Creatinine Ratio 36.1 (12.0-20.0); CO2, Blood 21 mmol/L (21-32); Calcium, Blood 7.6 mg/dL (8.5-10.1); Chloride, Blood 109 mmol/L (98-108); Creatinine, Blood 1.19 mg/dL (0.60-1.20); Glomerular Filtration Rate >60 (60-); Glucose, Blood 131 mg/dL (70-99); Potassium, Blood 4.4 mmol/L (3.5-5.5); Sodium, Blood 139 mmol/L (136-145)
--- NOTE | 2018-12-31 16:31 | NUR ---
DISCHARGE PT HAS DONE WELL TODAY. INCREASE IN PO INTAKE. PLEASANT AND COOPERATIVE. REPORT CALLED TO [facility].
== END 2018-12-31 16:33 | DRG 853 ==
LOC: ER 10:50 → MEDS 10:51 → ICUW 12-12 15:09 → MEDS 12-12 15:09 → SURS 12-13 10:24 → ICUW 12-13 10:28 → SURS 12-19 12:04
PROVIDERS: Emergency Medicine; Hospitalist; Internal Medicine; Internal Medicine Critical Care Medicine; Surgery; ADMIT Internal Medicine
PROC: 0DBA0ZZ Excision of Jejunum, Open Approach (ICD-10-PCS; principal; 2018-12-13 09:00)
PROC: 049 Lower Arteries, Drainage (ICD-10-PCS; 2018-12-14)
PROC: 0DB80ZZ Excision of Small Intestine, Open Approach (ICD-10-PCS; 2018-12-14)
PROC: 0BH17EZ Insertion of Endotracheal Airway into Trachea, Via Natural or Artificial Opening (ICD-10-PCS; 2018-12-14)
PROC: 5A1935Z Respiratory Ventilation, Less than 24 Consecutive Hours (ICD-10-PCS; 2018-12-14)
PROC: B4141ZZ Fluoroscopy of Superior Mesenteric Artery using Low Osmolar Contrast (ICD-10-PCS; 2018-12-14 15:15)
PROC: 02HV33Z Insertion of Infusion Device into Superior Vena Cava, Percutaneous Approach (ICD-10-PCS; 2018-12-16)
PROC: 30233N1 Transfusion of Nonautologous Red Blood Cells into Peripheral Vein, Percutaneous Approach (ICD-10-PCS; 2018-12-20)
DX: A41.9 Sepsis, unspecified organism (principal); K55.059 Acute (reversible) ischemia of intestine, part and extent unspecified; K65.9 Peritonitis, unspecified; E87.2 Acidosis; N17.9 Acute kidney failure, unspecified; E87.0 Hyperosmolality and hypernatremia; J95.89 Other postprocedural complications and disorders of respiratory system, not elsewhere classified; E87.1 Hypo-osmolality and hyponatremia; Z79.82 Long term (current) use of aspirin; R65.20 Severe sepsis without septic shock; K80.20 Calculus of gallbladder without cholecystitis without obstruction; K57.30 Diverticulosis of large intestine without perforation or abscess without bleeding; N20.0 Calculus of kidney; I16.0 Hypertensive urgency; E86.0 Dehydration; R33.9 Retention of urine, unspecified; K52.9 Noninfective gastroenteritis and colitis, unspecified; I48.2 Chronic atrial fibrillation; E78.00 Pure hypercholesterolemia, unspecified; N18.3 Chronic kidney disease, stage 3 (moderate); I12.9 Hypertensive chronic kidney disease with stage 1 through stage 4 chronic kidney disease, or unspecified chronic kidney disease; R06.89 Other abnormalities of breathing; I48.91 Unspecified atrial fibrillation; R06.6 Hiccough
CPT/HCPCS: 31720; 36245; 36415; 36569; 36600; 37184; 71045; 74019; 74176; 74177; 75726; 76705; 80048; 80053; 80069; 81001; 82271; 82803; 82947; 83605; 83690; 83735; 84100; 84478; 84484; 85007; 85014; 85018; 85025; 85027; 85610; 85730; 86850; 86900; 86901; 86923; 87040; 87070; 87106; 87205; 87507; 88307; 93005; 93010; 93306; 94002; 94003; 94640; 94760; 96361; 96361-59; 96365; 96372; 96374-59; 96375; 96375-59; 96376; 97110; 97116; 97530; 99152; 99153; 99285-25; C1751; C1757; C1760; C1769; C1887; C1894; C9113; G0378; J0360; J1100; J1170; J1644; J1650; J1940; J2060; J2250; J2270; J2370; J2405; J2543; J2710; J3010; J3230; J3475; J3480; J7030; J7050; J7120; P9016; Q0163; Q9967

== ENCOUNTER 2019-04-14 04:27 | Emergency (ER) | payer MEDICARE, OTHER ==
[~2019-04-14] VITALS: Ht 175.3 cm; Wt 77.1 kg
[~2019-04-14 04:27] MED LIST changes: -ATOR10; +ATOR10 PO
[2019-04-14] MEDS ORDERED: PANT40 PO (04:36)
[2019-04-14] MEDS ORDERED: XARELTO15 MG PO (04:37)
[2019-04-14] MEDS ORDERED: POTCHL20ER PO (04:38)
[2019-04-14] MEDS ORDERED: Verapamil HCl360 MG PO (04:38)
== END 2019-04-14 06:20 | disposition home or self-care (01) ==
LOC: ER 04:27
DX: S01.112A Laceration without foreign body of left eyelid and periocular area, initial encounter (principal); I10 Essential (primary) hypertension; K21.9 Gastro-esophageal reflux disease without esophagitis; Z79.899 Other long term (current) drug therapy; W18.30XA Fall on same level, unspecified, initial encounter
CPT/HCPCS: 12011; 99283-25

== ENCOUNTER 2019-07-19 15:06 | Emergency (ER) | payer OTHER, MEDICARE ==
[~2019-07-19] VITALS: Ht 175.3 cm; Wt 68.0 kg
[~2019-07-19 15:06] MED LIST changes: +PANT40 PO; +POTCHL20ER PO; +Verapamil HCl360 MG PO; +XARELTO15 MG PO
[2019-07-19 15:49] LABS: BASOPHILS ABSOLUTE AUTO 0.04 K/mm3 (0.00-0.23); BASOPHILS PERCENT AUTO 1 % (0-2); EOSINOPHILS ABSOLUTE AUTO 0.03 K/mm3 (0.00-0.68); EOSINOPHILS PERCENT AUTO 0 % (0-6); Hematocrit 33.9 % (37.0-53.0); IMMATURE GRAN ABSOLUTE AUTO 0.07 K/mm3 (0.00-0.10); IMMATURE GRAN PERCENT AUTO 1 % (0-1); LYMPHOCYTES ABSOLUTE AUTO 2.63 K/mm3 (0.84-5.20); LYMPHOCYTES PERCENT AUTO 30 % (21-46); MONOCYTES ABSOLUTE AUTO 0.68 K/mm3 (0.16-1.47); MONOCYTES PERCENT AUTO 8 % (4-13); Mean Corpuscular HGB 31.9 pg (26.0-34.0); Mean Corpuscular HGB Conc 32.4 g/dL (31.5-36.5); Mean Corpuscular Volume 98 fL (80-100); NEUTROPHILS ABSOLUTE AUTO 5.24 K/mm3 (1.96-9.15); NEUTROPHILS PERCENT AUTO 60 % (41-73); Platelet Count 232 K/mm3 (150-400); RDW Standard Deviation 53.2 fL (35.1-46.3); Red Blood Cell Count 3.45 M/mm3 (4.30-5.90); White Blood Cell Count 8.69 K/mm3 (4.00-11.30)
[2019-07-19 15:49] LABS: Source, Urine Clean Catch
[2019-07-19 16:01] LABS: Bun/Creatinine Ratio 15.8 (12.0-20.0); Calcium, Blood 7.6 mg/dL (8.5-10.1); Creatinine, Blood 1.46 mg/dL (0.60-1.20); Potassium, Blood 3.5 mmol/L (3.5-5.5)
[2019-07-19 16:03] LABS: Blood, Urine 5+ (Neg); Glucose Qualitative, Urine Neg (Neg); Ketones, Urine 1+ (Neg); Leukocyte Esterase, Urine 1+ (Neg); Nitrite, Urine Neg (Neg); Protein, Urine 3+ (Neg); Urobilinogen, Urine 1+ (Normal)
[2019-07-19 16:12] LABS: Appearance, Urine Hazy (Clear); Bilirubin, Urine 1+ (Neg); Color, Urine Yellow (P-Yellow)
[2019-07-19 16:14] LABS: Bacteria Few /hpf; Red Blood Cells, Urine TNTC /hpf (0-2); Squamous Epithelial Cells Few /hpf (Few)
[2019-07-19] MEDS ORDERED: Keflex500 MG PO (16:35)
== END 2019-07-19 17:49 | disposition home or self-care (01) ==
LOC: ER 15:06
PROVIDERS: Emergency Medicine
DX: N30.01 Acute cystitis with hematuria (principal); I48.91 Unspecified atrial fibrillation; D68.9 Coagulation defect, unspecified; T50.905A Adverse effect of unspecified drugs, medicaments and biological substances, initial encounter; K21.9 Gastro-esophageal reflux disease without esophagitis; I10 Essential (primary) hypertension; Z79.899 Other long term (current) drug therapy; Z79.01 Long term (current) use of anticoagulants
CPT/HCPCS: 36415; 80048; 81001; 85025; 87086; 93005; 93010; 96360; 96361; 99284-25; J7030

== ENCOUNTER 2019-08-08 09:32 | Observation (INO) | payer MEDICARE, OTHER ==
[~2019-08-08] VITALS: Ht 172.7 cm; Wt 65.8 kg
[~2019-08-08 09:32] MED LIST changes: +Keflex500 MG PO
[2019-08-08 10:10] LABS: BASOPHILS ABSOLUTE AUTO 0.01 K/mm3 (0.00-0.23); BASOPHILS PERCENT AUTO 0 % (0-2); EOSINOPHILS ABSOLUTE AUTO 0.02 K/mm3 (0.00-0.68); EOSINOPHILS PERCENT AUTO 0 % (0-6); Hematocrit 31.8 % (37.0-53.0); Hemoglobin 10.3 g/dL (13.5-17.5); IMMATURE GRAN ABSOLUTE AUTO 0.06 K/mm3 (0.00-0.10); IMMATURE GRAN PERCENT AUTO 1 % (0-1); LYMPHOCYTES ABSOLUTE AUTO 2.59 K/mm3 (0.84-5.20); LYMPHOCYTES PERCENT AUTO 31 % (21-46); MONOCYTES ABSOLUTE AUTO 0.56 K/mm3 (0.16-1.47); MONOCYTES PERCENT AUTO 7 % (4-13); Mean Corpuscular HGB 31.2 pg (26.0-34.0); Mean Corpuscular HGB Conc 32.4 g/dL (31.5-36.5); Mean Corpuscular Volume 96 fL (80-100); Mean Platelet Volume 10.9 fL (9.1-12.4); NEUTROPHILS ABSOLUTE AUTO 5.13 K/mm3 (1.96-9.15); NEUTROPHILS PERCENT AUTO 61 % (41-73); NRBC ABSOLUTE 0.02 K/mm3 (0.00-0.02); NRBC Auto 0.2 /100 WBC (0.0-0.2); Platelet Count 209 K/mm3 (150-400); RDW Coefficient Variation 15.5 % (11.7-14.2); RDW Standard Deviation 53.7 fL (35.1-46.3); White Blood Cell Count 8.37 K/mm3 (4.00-11.30)
[2019-08-08 10:16] LABS: Albumin, Blood 1.6 g/dL (3.4-5.0); Albumin/Globulin Ratio 0.4 (0.8-1.8); Bilirubin, Total 0.6 mg/dL (0.1-1.0); Bun/Creatinine Ratio 12.3 (12.0-20.0); Calcium, Blood 7.3 mg/dL (8.5-10.1); Creatinine, Blood 1.79 mg/dL (0.60-1.20); Globulin, Blood 3.6 g/dL (2.2-4.0); Potassium, Blood 3.5 mmol/L (3.5-5.5); Total Protein, Blood 5.2 g/dL (6.4-8.2); Troponin I 0.249 ng/mL (0.000-0.040)
[2019-08-08 11:52] LABS: Source, Urine Clean Catch
[2019-08-08 11:57] LABS: Appearance, Urine Clear (Clear); Bilirubin, Urine Neg (Neg); Blood, Urine 4+ (Neg); Color, Urine Yellow (P-Yellow); Glucose Qualitative, Urine Neg (Neg); Ketones, Urine Neg (Neg); Leukocyte Esterase, Urine 1+ (Neg); Nitrite, Urine Neg (Neg); Protein, Urine 2+ (Neg); Urobilinogen, Urine 1+ (Normal)
[2019-08-08 12:08] LABS: Bacteria Rare /hpf; Granular Casts 0-2 /lpf (0); Mucus Light (0-Heavy); Squamous Epithelial Cells Not Seen /hpf (Few)
[2019-08-08] MEDS ORDERED: VERAPAMIL SR180 MG PO (12:56)
[2019-08-08] MEDS ORDERED: Protonix40 MG PO (12:57)
[2019-08-08] MEDS ORDERED: FUROSEMIDE20 MG PO (12:57)
[2019-08-08 14:08] LABS: Percent Saturation 23.7 % (20.0-50.0)
[2019-08-08 14:14] LABS: Magnesium, Blood 1.1 mg/dL (1.6-2.4)
--- NOTE | 2019-08-08 17:16 | NUR ---
NEW ER ADMIT THIS AFTERNOON. PT IS A/O X3, PLEASANT AFFECT. DX PLEURAL EFFUSION. HE STATE NO SOB @ REST @ THIS TIME, BIOX 96% RA. LUNGS DECREASED, COARSE W CRACKLES L LOBE. HE IS WEAK/FATIGUED, PALE. STATE UNABLE TO AMBULATE W/O ASSIST @ THIS TIME, USES FWW @ HOME. BLE EDEMA 2+, TEDS PLACED/ORDER. HE IS SCEDULED FOR CT GUIDED THORACENTESIS IN AM, COAG LABS ORDERED FOR AM, STATE TO GIVE XARELTO TONITE. FLUIDS PROVIDED, SUPPORTIVE FAMILY @ BEDSIDE. VSS @ THIS TIME.
[2019-08-09 05:14] LABS: Hematocrit 31.1 % (37.0-53.0); Mean Corpuscular HGB 32.3 pg (26.0-34.0); Mean Corpuscular HGB Conc 32.2 g/dL (31.5-36.5); Mean Platelet Volume 10.9 fL (9.1-12.4); NRBC ABSOLUTE 0.02 K/mm3 (0.00-0.02); NRBC Auto 0.3 /100 WBC (0.0-0.2); Platelet Count 190 K/mm3 (150-400); RDW Coefficient Variation 15.8 % (11.7-14.2); RDW Standard Deviation 56.9 fL (35.1-46.3); White Blood Cell Count 7.07 K/mm3 (4.00-11.30)
[2019-08-09 05:15] LABS: Mean Corpuscular Volume 100 fL (80-100)
[2019-08-09 05:27] LABS: International Normalized Ratio 1.7; Prothrombin Time Results 17.2 Sec (9.7-11.5)
[2019-08-09 05:33] LABS: Bun/Creatinine Ratio 12.5 (12.0-20.0); Calcium, Blood 7.8 mg/dL (8.5-10.1); Creatinine, Blood 1.68 mg/dL (0.60-1.20); Magnesium, Blood 1.5 mg/dL (1.6-2.4); Potassium, Blood 3.8 mmol/L (3.5-5.5)
--- NOTE | 2019-08-09 07:21 | NUR ---
SHIFT SUMMARY PT IS AN 89 Y/O M, ADMITTED FOR L PLEURAL EFFUSION. HE IS A&O X 3, THOUGH OCCASIONALLY FORGETFUL. PT IS ON BEDREST. NO COMPLAINTS OF ACUTE PAIN OR NAUSEA, THOUGH PT DID REPORT INTERMITTENT EPISODES OF INCREASED SOB. PT IS ON 2L OF O2 VIA NC. VITAL SIGNS STABLE. NO OTHER ACUTE CHANGES IN PT CONDITION NOTED. REPORT GIVEN TO ONCOMING RN.
--- NOTE | 2019-08-09 10:16 | NUR ---
Consent Pt gave consent for inpatient nursing aide Beth to assist with care on 08/09/19.
--- NOTE | 2019-08-09 16:09 | NUR ---
Spiritual Care inital note: Mr. Marley was sitting in chair and alert. He appears quite frail and weak. Too weak for lengthy conversation. Family at bedside appears loving and attentive. Provided prayer for healing at pt request. I will remain available to pt and family.
--- NOTE | 2019-08-09 17:33 | NUR ---
Initial Visit: Palliative Care Consult for AD/POLST, Advanced Care Planning, and Symptom Management. Pt is A&OX4 and denies pain at this time. Pt reoprts mild but manageable dyspnea. He reports dyspnea has improved with oxygen helping. Pt denies anxiety, depression, and nausea. Engaged in therapeutic discussion. Listened as Pt reports feeling weaker and experiencing little appetite. Pt admits that he has started giving up. Discussed the possibility of depression and Pt denies this possibility. Pt reports plently of support from his and children. He is of anglican frankie and denies need for roughener visit. He reports members from his orthodoxy visit with him and provide spiritual support. Suggested the possibility of spiralling effect between his weakness and lack of appetite. Pt agrees to this possibility. Engaged in therpeutic discussion regarding AD/POLST. Pt expresses interest and states he will complete when his family visits. Educated on POLST form and each section to complete. Educated on life sustaining measures including risk factors. Pt is scheculed for thorecentesis tomorrow. Pt is agreeable with continued visits from palliative care. Spoke with bedside nurse Kylah and discussed case. She reports working well with therapy and was out in the lee ambulating with physical therapy. Palliative Care will remain available.
--- NOTE | 2019-08-09 18:14 | NUR ---
SHIFT SUMMARY HOLDING XARELTO UNTIL AFTER THORACENTESIS, HOPEFUL TO BE PERFORMED TOMORROW. STILL NEED STOOL SAMPLE. NO COMPLAINT OF PAIN. CHANGED TO RENAL DIET TODAY. PHYSICAL THERAPY WORKED WITH PT TODAY AND WALKED HIM IN THE ROOM W/FWW AND GAIT BELT. PT HAS A LEFT PLEURAL EFFUSION.
[2019-08-10 05:10] LABS: BASOPHILS ABSOLUTE AUTO 0.01 K/mm3 (0.00-0.23); BASOPHILS PERCENT AUTO 0 % (0-2); EOSINOPHILS ABSOLUTE AUTO 0.03 K/mm3 (0.00-0.68); EOSINOPHILS PERCENT AUTO 0 % (0-6); Hemoglobin 8.7 g/dL (13.5-17.5); IMMATURE GRAN ABSOLUTE AUTO 0.08 K/mm3 (0.00-0.10); IMMATURE GRAN PERCENT AUTO 1 % (0-1); LYMPHOCYTES ABSOLUTE AUTO 1.38 K/mm3 (0.84-5.20); LYMPHOCYTES PERCENT AUTO 19 % (21-46); MONOCYTES ABSOLUTE AUTO 0.66 K/mm3 (0.16-1.47); MONOCYTES PERCENT AUTO 9 % (4-13); Mean Corpuscular HGB 30.6 pg (26.0-34.0); Mean Corpuscular HGB Conc 31.1 g/dL (31.5-36.5); Mean Corpuscular Volume 99 fL (80-100); Mean Platelet Volume 10.9 fL (9.1-12.4); NEUTROPHILS ABSOLUTE AUTO 5.21 K/mm3 (1.96-9.15); NEUTROPHILS PERCENT AUTO 71 % (41-73); Platelet Count 156 K/mm3 (150-400); RDW Coefficient Variation 15.5 % (11.7-14.2); RDW Standard Deviation 55.3 fL (35.1-46.3); Red Blood Cell Count 2.84 M/mm3 (4.30-5.90); White Blood Cell Count 7.37 K/mm3 (4.00-11.30)
--- NOTE | 2019-08-10 06:23 | NUR ---
SHIFT SUMMARY A/O, ABLE TO MAKE NEEDS KNOWN. COOPERATIVE WITH CARE. CALLS AND ANSWERS QUESTIONS APPROPRIATELY. NO C/O PAIN. DID EXPRESS SOME DISCOMFORT IN CHEST; STATING THAT HE FELT THOUGH HE WAS UNABLE TO GET A DEEP BREATH. WE DISCUSSED HIS DIAGNOSIS AND THAT HE WOULD BE HAVING A PROCEDURE 08/10/19, WHICH WOULD HOPEFULLY GIVE RELIEF. PATIENT STATED THAT HE JUST WOULD LIKE TO GET REST DURING THE NIGHT; CALLED ON-CALL AND RECIEVED OT DOSE OF MELATONIN. APPEARED TO REST SOME OVERNIGHT. NO OTHER ISSUES OVERNIGHT. VSS/AFEBRILE. REMAINS ON 2L NC WITH EVEN RESPIRATIONS. BED IN LOWEST POSITION. CALL LIGHT AND BELONGINGS WITHIN REACH. WCTM. REPORT TO ONCOMING RN.
[2019-08-10 06:31] LABS: Albumin, Blood 2.1 g/dL (3.4-5.0); Albumin/Globulin Ratio 0.8 (0.8-1.8); Bilirubin, Total 0.4 mg/dL (0.1-1.0); Bun/Creatinine Ratio 10.9 (12.0-20.0); Calcium, Blood 7.5 mg/dL (8.5-10.1); Creatinine, Blood 1.83 mg/dL (0.60-1.20); Free Thyroxine 1.1 ng/dL (0.70-1.60); Globulin, Blood 2.7 g/dL (2.2-4.0); Potassium, Blood 4.1 mmol/L (3.5-5.5); Total Protein, Blood 4.8 g/dL (6.4-8.2); Triiodothyronine, Free 1.47 pg/mL (2.18-3.98)
--- NOTE | 2019-08-10 14:40 | NUR ---
Clinical Visit: Call from Marisol, healthcare business analyst, earlier today. Family wanted to talk about hospice. Reviewed chart, call placed to Dr. Palafox. He states that pt does not appear to be ready for hospice at this time. Pt alert, oriented. He becomes short of breath with speaking. He is laying in his bed, appears comfortable. Pt reports profound fatigue, diminished appetite, loss of mobility, weight loss of 45+ in last 6 months, increased daytime sleepiness. 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 Pt lives at home with his , he was walking shortly following his bowel resection in Nov of this year. He declined SNF and only spent a day there before he wanted to go home. He was brought home by his family and did a little bit of physical therapy HH. Family is present. 2 sons and a daughter in law. They are expressing a wish to have him comfortable at home and not bring him back to the hospital. Discussed hospice care with them. Recommendation is for home with home health. He is going to be treated with thoracentesis tomorrow for his L pleural effusion. Reviewed pt's right to decline healthcare. He states that he is not declining, he would like the procedure. He would accept to come back to the hospital if he were "bleeding or something." Not interested in POLST form. Discussed possible discharge plans, including transitioning to hospice from if he qualifies. Pt's existance is from bed to wheelchair to bathroom and then back to bed. Discussed depression, s/s. Pt states that he is not depressed, he just doesn't feel like doing anything. Discussed with Estee and Hospice liason for [facility]. She states that she can have a hospice nurse review and see if he qualifies.
--- NOTE | 2019-08-10 18:22 | NUR ---
SHIFT SUMMARY. A&OX3, CGA WITH GB AND FWW TO BS. PT SHOWERED TODAY. PT DENIES PAIN, N/V. PT REPORTS DIFFICULTY DEEP BREATHING. L LUNG RUBIO DIM TO ABSENT. PT CONTINUES WITH 2L O2 NC. FAMILY AT BEDISDE INTERMITTENTLY THIS SHIFT, SPOKE WITH PALLITATIVE CARE. NO NEW CHANGES.
--- NOTE | 2019-08-11 05:25 | NUR ---
SHIFT SUMMARY: 89 Y/O MALE PLEASANT AND COOPERATIVE. HAS HAD OFF AND ON DIFFICULTY BREATHING THROUGHOUT THE NIGHT. HE LIKES TO LAY DAVID FLAT IN BED WHICH IN TURN CAUSES HIM SOB. HE COMPLAINED OF THIS OFF AND ON THROUGHOUT THE NIGHT. GAVE HIM A FAN TO ASSIST AND CONTINUED TO ENCOURAGE HIM TO SIT UP IN THE BED TO HELP WITH BREATHING. EDUCATED HIM ON HIS DIAGNOSIS AND HOW IT AFFECTS HIS BREATHING. HE IS TO HAVE PROCEDURE TO HELP RELEIVE THIS ISSUES ON 08/11/19, THEREFORE MADE HIM NPO JUST IN CASE SOMETHING MORE NEEDS TO BE DONE. AFTER A WHILE HE DID SIT UP IN BED AND THIS DID RELEIVE SOME OF THE SOB TO WHERE HE COULD SLEEP A LONGER PERIOD OF TIME. WILL REPORT TO DAY SHIFT RN OF CHANGES.
[2019-08-11 11:16] LABS: Albumin, Body Fluid 0.7 g/dL; Glucose, Body Fluid 133 mg/dL; Lactate Dehydrogenase, Body Fl 72 U/L; Protein, Body Fluid 1.5 g/dL
[2019-08-11 11:21] LABS: Automated BF WBC Count 0.023 K/mm3 (0-999); Body Fluid WBC Count 23 /mm3 (0-999)
[2019-08-11 12:00] LABS: Appearance, Body Fluid Clear (Clear); Color, Body Fluid Yellow (None-Yellow); RBC Count, Body Fluid 2 /mm3 (0-0)
[2019-08-11 13:03] LABS: Total Cell Count, Body Fluid 100
[2019-08-11 16:11] LABS: Percent Saturation 18.8 % (20.0-50.0)
--- NOTE | 2019-08-11 18:05 | NUR ---
PT ALERT AND ORIENTED DURING THIS SHIFT. PT UP IN CHAIR THIS AM FOR BREAKFAST. PT DOWN FOR A THORACENTESIS THIS AM. PT'S BREATHING MUCH IMPROVED AFTER PROCEDURE. PT FROM 2L O2 TO ROOM AIR SHORTLY AFTER PROCEDURE, MAINTAINING 96% O2 ON RA. PT QUICKER TO RESPOND AFTER PROCEDURE. FAMILY IN ROOM THROUGHOUT THE SHIFT. PT CURRENTLY RESTING IN BED. PT USES CALL LIGHT APPROPRIATELY. CALL LIGHT IN REACH. WILL CONTINUE TO MONITOR.
--- NOTE | 2019-08-11 21:43 | NUR ---
BM PT REPORTS THAT IT HAS BEEN "SEVERAL DAYS" SINCE HE HAS HAD A BOWEL MOVEMENT. OFFERED BOWEL CARE THIS EVENING AND PT DECLINED. PT STATED THAT HE WOULD LIKE TO TRY SOMETHING DURING THE DAY TOMORROW IF HE DOESN'T HAVE ONE THIS EVENING.
--- NOTE | 2019-08-12 05:18 | NUR ---
SHIFT SUMMARY PT HAD UNEVENTFUL NIGHT. BREATHING EVEN AND UNLABORED THROUGHOUT THE NIGHT. REMAINED ON RA WITH O2 SATS GREATER THAN 90%. NO COMPLAINTS OF PAIN. PT REPORTED THAT HE HAD A DIFFICULT TIME SLEEPING THIS EVENING. OTHERWISE NO ACUTE CHANGES. VITAL SIGNS STABLE. WILL CONTINUE TO MONITOR AND REPORT TO DAY RN.
[2019-08-12] MEDS ORDERED: Vitamin D2000 UNIT PT (10:27)
[2019-08-12] MEDS ORDERED: LIOT25 PO (10:27)
--- NOTE | 2019-08-12 12:52 | NUR ---
PT DISCHARGED TO HOME WITH HOME HEALTH. PT TRANSPORTED HOME BY SON. PT UP TO WHEELCHAIR WITH ASSIST. PT AND SON PROVIDED WITH DISCHARGE INSTRUCTIONS. PT'S SON VERBALIZED UNDERSTANDING OF DISCHARGE INSTRUCTIONS. PT STATES THAT HE IS FEELING MUCH BETTER NOW THAT HE CAN BREATH. PT BELONGINGS WITH PT TO CAR.
== END 2019-08-12 12:16 | disposition home or self-care (01) ==
LOC: ER 09:32 → MEDS 09:33 → EDPENDDIS 08-12 10:55 → ENPENDDIS 08-12 10:55 → MEDS 08-12 12:16
PROVIDERS: Emergency Medicine; Internal Medicine; Nurse Practitioner Acute Care; ADMIT Family Medicine
PROC: BB4BZZZ Ultrasonography of Pleura (ICD-10-PCS; principal; 2019-08-10)
PROC: 0W9B3ZZ Drainage of Left Pleural Cavity, Percutaneous Approach (ICD-10-PCS; principal; 2019-08-10)
DX: J90 Pleural effusion, not elsewhere classified (principal); J96.21 Acute and chronic respiratory failure with hypoxia; E43 Unspecified severe protein-calorie malnutrition; R53.1 Weakness; N17.9 Acute kidney failure, unspecified; I12.9 Hypertensive chronic kidney disease with stage 1 through stage 4 chronic kidney disease, or unspecified chronic kidney disease; N18.9 Chronic kidney disease, unspecified; D63.1 Anemia in chronic kidney disease; K21.9 Gastro-esophageal reflux disease without esophagitis; I48.20 Chronic atrial fibrillation, unspecified; R77.8 Other specified abnormalities of plasma proteins; E03.9 Hypothyroidism, unspecified; E86.0 Dehydration; Z68.22 Body mass index [BMI] 22.0-22.9, adult; Z66 Do not resuscitate; Z79.899 Other long term (current) drug therapy; Z79.01 Long term (current) use of anticoagulants; Z74.01 Bed confinement status; Z99.3 Dependence on wheelchair
CPT/HCPCS: 32555; 36415; 71045; 71046; 80048; 80053; 81001; 82042; 82550; 82607; 82728; 82746; 82945; 83540; 83550; 83605; 83615; 83735; 83880; 83970; 84100; 84145; 84157; 84439; 84443; 84481; 84484; 85025; 85027; 85610; 85730; 87040; 87070; 87086; 87205; 89051; 93005; 93010; 96365; 96366; 96367; 96372; 97110; 97116; 97162; 97166; 97530; 97535; 99285-25; G0378; J0696; J1956; J3420; J3475; J7050; P9046

== ENCOUNTER 2019-08-14 09:14 | Emergency (ER) | payer MEDICARE, OTHER ==
[~2019-08-14] VITALS: Ht 175.3 cm; Wt 68.0 kg
[~2019-08-14 09:14] MED LIST changes: +FUROSEMIDE20 MG PO; +LIOT25 PO; +Protonix40 MG PO; +VERAPAMIL SR180 MG PO; +Vitamin D2000 UNIT PT
[2019-08-14 09:50] LABS: BASOPHILS ABSOLUTE AUTO 0.01 K/mm3 (0.00-0.23); BASOPHILS PERCENT AUTO 0 % (0-2); EOSINOPHILS ABSOLUTE AUTO 0.04 K/mm3 (0.00-0.68); EOSINOPHILS PERCENT AUTO 1 % (0-6); Hemoglobin 10.5 g/dL (13.5-17.5); IMMATURE GRAN PERCENT AUTO 1 % (0-1); LYMPHOCYTES PERCENT AUTO 23 % (21-46); MONOCYTES ABSOLUTE AUTO 0.66 K/mm3 (0.16-1.47); MONOCYTES PERCENT AUTO 9 % (4-13); Mean Corpuscular HGB 31.2 pg (26.0-34.0); Mean Corpuscular HGB Conc 31.8 g/dL (31.5-36.5); Mean Corpuscular Volume 98 fL (80-100); Mean Platelet Volume 11.1 fL (9.1-12.4); NEUTROPHILS ABSOLUTE AUTO 4.66 K/mm3 (1.96-9.15); NEUTROPHILS PERCENT AUTO 66 % (41-73); NRBC ABSOLUTE 0.04 K/mm3 (0.00-0.02); NRBC Auto 0.6 /100 WBC (0.0-0.2); Platelet Count 190 K/mm3 (150-400); RDW Coefficient Variation 15.6 % (11.7-14.2); RDW Standard Deviation 55.4 fL (35.1-46.3); Red Blood Cell Count 3.37 M/mm3 (4.30-5.90); White Blood Cell Count 7.07 K/mm3 (4.00-11.30)
[2019-08-14 10:08] LABS: Albumin, Blood 2.2 g/dL (3.4-5.0); Albumin/Globulin Ratio 0.6 (0.8-1.8); Bilirubin, Total 0.5 mg/dL (0.1-1.0); Calcium, Blood 8.3 mg/dL (8.5-10.1); Creatinine, Blood 1.67 mg/dL (0.60-1.20); Globulin, Blood 3.7 g/dL (2.2-4.0); Potassium, Blood 4.2 mmol/L (3.5-5.5); Total Protein, Blood 5.9 g/dL (6.4-8.2)
[2019-08-14] MEDS ORDERED: Ativan0.5 MG PO (10:35)
== END 2019-08-14 11:06 | disposition home or self-care (01) ==
LOC: ER 09:14
PROVIDERS: Emergency Medicine
DX: J90 Pleural effusion, not elsewhere classified (principal); I48.91 Unspecified atrial fibrillation; I12.9 Hypertensive chronic kidney disease with stage 1 through stage 4 chronic kidney disease, or unspecified chronic kidney disease; N18.3 Chronic kidney disease, stage 3 (moderate); D63.1 Anemia in chronic kidney disease; Z79.899 Other long term (current) drug therapy; Z79.01 Long term (current) use of anticoagulants
CPT/HCPCS: 36415; 71046; 80053; 83880; 85025; 93005; 93010; 99285-25

== ENCOUNTER 2019-08-17 02:33 | Inpatient (IN) | payer OTHER, MEDICARE ==
[~2019-08-17] VITALS: Ht 175.3 cm; Wt 66.9 kg
[~2019-08-17 02:33] MED LIST changes: +Ativan0.5 MG PO
[2019-08-17 03:13] LABS: BASOPHILS ABSOLUTE AUTO 0.02 K/mm3 (0.00-0.23); BASOPHILS PERCENT AUTO 0 % (0-2); EOSINOPHILS ABSOLUTE AUTO 0.04 K/mm3 (0.00-0.68); EOSINOPHILS PERCENT AUTO 1 % (0-6); Hematocrit 31.8 % (37.0-53.0); IMMATURE GRAN ABSOLUTE AUTO 0.08 K/mm3 (0.00-0.10); IMMATURE GRAN PERCENT AUTO 1 % (0-1); LYMPHOCYTES ABSOLUTE AUTO 1.36 K/mm3 (0.84-5.20); LYMPHOCYTES PERCENT AUTO 19 % (21-46); MONOCYTES ABSOLUTE AUTO 0.61 K/mm3 (0.16-1.47); MONOCYTES PERCENT AUTO 9 % (4-13); Mean Corpuscular HGB 32.2 pg (26.0-34.0); Mean Corpuscular HGB Conc 31.4 g/dL (31.5-36.5); Mean Corpuscular Volume 102 fL (80-100); Mean Platelet Volume 11.1 fL (9.1-12.4); NEUTROPHILS ABSOLUTE AUTO 5.07 K/mm3 (1.96-9.15); NEUTROPHILS PERCENT AUTO 71 % (41-73); NRBC ABSOLUTE 0.03 K/mm3 (0.00-0.02); NRBC Auto 0.4 /100 WBC (0.0-0.2); Platelet Count 228 K/mm3 (150-400); RDW Coefficient Variation 15.9 % (11.7-14.2); RDW Standard Deviation 57.9 fL (35.1-46.3); Red Blood Cell Count 3.11 M/mm3 (4.30-5.90); White Blood Cell Count 7.18 K/mm3 (4.00-11.30)
[2019-08-17 03:32] LABS: Albumin, Blood 2.1 g/dL (3.4-5.0); Albumin/Globulin Ratio 0.5 (0.8-1.8); Bilirubin, Total 0.3 mg/dL (0.1-1.0); Bun/Creatinine Ratio 20.1 (12.0-20.0); Creatinine, Blood 1.59 mg/dL (0.60-1.20); Globulin, Blood 3.9 g/dL (2.2-4.0); Potassium, Blood 4.9 mmol/L (3.5-5.5)
--- NOTE | 2019-08-17 06:30 | NUR ---
transfer report on 89 year old MAle who has pleural effusions had thoracentesis last Wed, back to ER on Sat with SOB. EMS brought in and PT being admitted for thoracentesis and labs from Pleural fluid. Reportedly has 95% room air sat. Await admission. Report given by Nael ZHANG in ER
--- NOTE | 2019-08-17 13:33 | NUR ---
Pt visit this afternoon. Pt resting in bed and denies pain at this time. Pt reports mild dyspnea and denies anxiety at this time. Pt's daughter in law at bedside. Discussed goals of care. Pt and daughter in law report Pt has chosen hospice. Discussed referral has already been faxed to [facility] from Pt[facility] PCP[facility] Discussed paln for thoracentesis this afternoon. Pt and family also express interest for PleurX drain placement if Pt is a candidate. No other concerns reported at this time. Pt and family are agreeable for continued visits from Palliative Care. Spoke with [facility] Liason Saadia and discussed case. Spoke with bedside nurse Sonny and discussed case. Spoke with Dr Haile and relayed Pt's interest in PleurX drain if appropriate. Palliative Care will remain available.
[2019-08-17 15:10] LABS: Body Fluid WBC Count 40 /mm3 (0-999)
[2019-08-17 15:28] LABS: pH, Body Fluid 7.5
[2019-08-17 15:36] LABS: Lactate Dehydrogenase, Body Fl 89 U/L; Protein, Body Fluid 1.5 g/dL
[2019-08-17 15:42] LABS: RBC Count, Body Fluid 3 /mm3 (0-0)
[2019-08-17 15:58] LABS: Appearance, Body Fluid Clear (Clear); Color, Body Fluid Yellow (None-Yellow); Total Cell Count, Body Fluid 100
--- NOTE | 2019-08-17 17:35 | NUR ---
PT ALERT AND ORIENTED THROUGHOUT THIS SHIFT. PT HAD A THORACENTESIS THIS SHIFT, REMOVING 1500 ML OF FLUID. PT BREATHING HAS BEEN MUCH IMPROVED AFTER PROCEDURE. PT LETHARGIC EVEN AFTER PROCEDURE. PT HAS HAD VISITORS IN THE ROOM DURING MUCH OF THIS SHIFT. HOSPICE HAS BEEN IN THE ROOM TO CONSULT WITH THE PATIENT. PT CURRENTLY IN ROOM WITH FAMILY MEMBERS AT THE BEDSIDE. WILL CONTINUE TO MONITOR.
[2019-08-18 05:11] LABS: Hematocrit 27.9 % (37.0-53.0); Hemoglobin 8.7 g/dL (13.5-17.5); Mean Corpuscular HGB 31.2 pg (26.0-34.0); Mean Corpuscular HGB Conc 31.2 g/dL (31.5-36.5); Mean Corpuscular Volume 100 fL (80-100); Mean Platelet Volume 10.6 fL (9.1-12.4); NRBC ABSOLUTE 0.02 K/mm3 (0.00-0.02); NRBC Auto 0.3 /100 WBC (0.0-0.2); Platelet Count 191 K/mm3 (150-400); RDW Coefficient Variation 15.5 % (11.7-14.2); Red Blood Cell Count 2.79 M/mm3 (4.30-5.90); White Blood Cell Count 6.19 K/mm3 (4.00-11.30)
[2019-08-18 05:39] LABS: Albumin, Blood 1.6 g/dL (3.4-5.0); Albumin/Globulin Ratio 0.5 (0.8-1.8); Bilirubin, Total 0.2 mg/dL (0.1-1.0); Bun/Creatinine Ratio 21.1 (12.0-20.0); Calcium, Blood 7.9 mg/dL (8.5-10.1); Creatinine, Blood 1.66 mg/dL (0.60-1.20); Globulin, Blood 3.2 g/dL (2.2-4.0); Potassium, Blood 4.9 mmol/L (3.5-5.5); Total Protein, Blood 4.8 g/dL (6.4-8.2)
--- NOTE | 2019-08-18 06:47 | NUR ---
PT TOLERATED THORACENTASIS LT CHEST WITH 1.5 L REMOVED. O2 SAT 100% ON 2V L NC. Appetite fair drank ensure. Denies pain or acutre distress. Has supportive family and has Hospice referral. Pleasant able to communicate.
--- NOTE | 2019-08-18 10:43 | NUR ---
Palliative care follow up visit Met with Mona in his room this morning. He is accompanied by his son. His son reports that Mona had a thoracentesis done yesterday which removed 1.5 liters. Mona is c/o difficulty breathing at this time. He was repositioned in bed and the HOB was elevated to about 30 degrees and he reports his breathing improved. Skin color is pale, but no distress noted. Resp even and unlabored, no cough or retractions noted. He is wearing his O2 at 2 l/min via NC. Pt's son states they are planning to go home with [facility] but would like to have a pleruX drain placed before discharge. Pt had a thoracentesis 6 days ago which removed 1 liter fluid, was discharged home and then was readmitted on Friday, a couple days after going home for increased SOB. Pt's son reports they do not want to keep bringing Mona back to the hospital for treatment. They want to be able to go home with hospice and stay home and manage his SOB at home. Spoke with Estee Zarate, hospice liason, who confirmed that hospice will not cover the cost of pleurX placement if he gets his pleurX drain placed after he is already receiving hospice services. PleurX drain information given to pt and his son. Sample pleurX drain shown to pt and son. PleurX teaching started. Pt states he used to take baths, which would be contraindicated with pleurX drain in place. Pt's son states that he has been tried to encourage pt to start showering as it is becoming more difficult to get Mona out of the bathtub after his bath. Mona agrees he would rather give up bathing and breathe easier with a pleurX than not have a pleurX and continue bathing. Questions answered. Mona and son are interested in pursuing pleurX placement. Spoke with Dr. Haile to request a surgical consult. It is likely that pt's discharged will be delayed as fluid will need to reaccumulate for a pleurX to be placed. If pt is discharged without a pleurX drain, he will be a risk for another readmission for symtpom management. Plan is for Dr. Haile to order a surgical consult. Updated nursing and pt/family of plan for pleurX drain placement. PC will follow up with pt and family for continued pleurX drain managment education.
--- NOTE | 2019-08-18 14:29 | NUR ---
Spiritual Care note: Mr. Marley was alone in room and sleeping post-op. He appears comfortable and well cared-for. Prayer provided at bedside. I will remain available to pt and family.
--- NOTE | 2019-08-18 17:54 | NUR ---
PT ALERT AND ORIENTED DURING THIS SHIFT. PT COOPERATIVE WITH CARE. PT IN BED MOST OF THIS SHIFT. FAMILY HAS BEEN IN THE ROOM PERIODICALLY THROUGHOUT THE SHIFT. PT LESS ACTIVE DURING THIS SHIFT THAN PREVIOUS SHIFTS. LUNG SOUNDS CONTINUE TO BE AUDIBLE THROUGHOUT, AFTER THOROCENTESIS YESTERDAY. PT DID NOT HAVE MUCH OF AN APPETITE DURING THIS SHIFT. PT ENCOURAGED TO DRINK NUTRITION BEVERAGES. PT CURRENTLY SITTING UP IN BED EATING DINNER, CALL LIGHT IN REACH. WILL CONTINUE TO MONITOR.
--- NOTE | 2019-08-19 11:06 | NUR ---
Pt visit this AM. Pt is resting in bed upon arrival and denies pain at this time. Pt reports SOB and states the oxygen is helping. Discussed plan to have PleurX drain placed today and Pt is still agreeable with plan. Pt reports no other concerns at this time. Spoke with bedside nurse Laura and discussed case. Spoke with [facility] Liatone Zee and discussed case. Called and spoke with Pt's daughter in law Nilda and discussed goals of care. Nilda reports speaking with Pt this AM and Pt is still wanting hospice. No other concerns reported at this time. Palliative Care will remain available.
--- NOTE | 2019-08-19 12:07 | NUR ---
PT TRANSPORTED TO [facility]. ORIENTED TO NAME, PLACE AND YEAR. LUNG SOUND DIMINISHED.
--- NOTE | 2019-08-19 12:30 | NUR ---
REPORT TEONE TO JESSY MARTINI RN.
--- NOTE | 2019-08-19 13:44 | NUR ---
08/19/19 1344 Speedy Gurrola USED AT OPSITE FROM [employer] [facility]
--- NOTE | 2019-08-19 18:32 | NUR ---
SHIFT SUMMARY DMITRI WENT TO HIS PLEUR-X PLACEMENT PROCEDURE AROUND NOON TODAY, NO PROBLEMS WITH IT. DRESSING C/D/I. USING URINAL APPROPRIATELY. FAMILY VISITED AND HAD MEETING WITH HOSPICE AND PALLIATIVE. PT AT 92% on RA BUT GETS SOB, 2L ON CURRENTLY. PT DECLIEND TO GET OOB THIS SHIFT, ENCOURAGED MOVING IN BED. CALL LIGHT IN REACH, [facility]
--- NOTE | 2019-08-20 05:49 | NUR ---
SHIFT SUMMARY AOX4. LS CLEAR, DENIES SOB. 2L VIA NC, WILL NEED HELP GETTING O2 AT HOME. R WRIST AND L WRIST IVS ARE SL. L SIDE DRESSING C/D/I FROM PLEURX CATH PLACEMENT. NO C/O PAIN. VSS. PLAN TO DC TODAY.
--- NOTE | 2019-08-20 10:00 | NUR ---
Visited with Mona this morning. He is awake and states he is ready to go home today. He requests that his son be present for pleurX drain education. Spoke with nursing, Saadia, hospice liason, and Dr. Haile. [facility] order set rec'd from and ordering paperwork signed by Dr. Haile. Faxed orders to care fusion, copy of care fusion orders given to Saadia. Requested that nursing contact PC when family arrives to take pt home to go over pleurX drain education.
[2019-08-20] MEDS ORDERED: DOCU100 PO (10:39)
[2019-08-20] MEDS ORDERED: Milk Of Ma400 MG/5 M PO (10:41)
--- NOTE | 2019-08-20 10:41 | NUR ---
PT PLEASANT COOP A/O. DENIES PAIN. 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 PALE. H/R IRREG, MURMER NOTED. NEW PLUREX DRAIN CDI LEFT RIB CAGE. LUNGS CLEAR, RESP EASY, UNLABORED. ON 2L O2. BT HYPO. LAST BM 2 DAYS. VOIDS PER URINAL SBA FWW TO BATHROOM. BED IN LOW POSITION, CALL LITE IN REACH, CALLS APPROP. EXP D.C. 1030 FAMILY/ HOSPICE PER D/C POWER TOOL REPAIRER
--- NOTE | 2019-08-20 11:10 | NUR ---
DISCHARGE REVIEWED WITH PT AND FAMILY. NO TELE. IV REMOVED INTACT BY VICENTE FLOWERS. FAMILY VERBALIZED UNDERSTANDING OF MEDS AND INSTRUCTIONS. [facility] CALLED FOR TRANSPORT
--- NOTE | 2019-08-20 11:55 | NUR ---
PT D/C OUT DOOR WITH [facility] AT [id number]
--- NOTE | 2019-08-20 12:04 | NUR ---
PleurX drain education reviewed with pt and two sons. Questions answered. Pt's pleurX cath dsg with a very small amount of dried sero-sang drainage on gauze under the tegaderm. PleurX starter kit with 4 1-liter bottles and pamphlet set home with pt. Pt's family encouraged to watch pleurX drain managment video at home and contact hospice for any concerns or questions.
== END 2019-08-20 09:12 | disposition hospice, home (50) | DRG 186 ==
LOC: ER 02:33 → MEDS 02:34 → ER 05:53 → MEDS 05:53 → ENPENDDIS 08-20 09:12 → MEDS 08-20 09:12
PROVIDERS: Emergency Medicine; Surgery; ADMIT Internal Medicine
PROC: 0B9P30Z Drainage of Left Pleura with Drainage Device, Percutaneous Approach (ICD-10-PCS; principal; 2019-08-19 12:30)
DX: J90 Pleural effusion, not elsewhere classified (principal); E43 Unspecified severe protein-calorie malnutrition; K21.9 Gastro-esophageal reflux disease without esophagitis; Z51.5 Encounter for palliative care; R06.03 Acute respiratory distress; E88.09 Other disorders of plasma-protein metabolism, not elsewhere classified; N18.3 Chronic kidney disease, stage 3 (moderate); E03.9 Hypothyroidism, unspecified; E78.5 Hyperlipidemia, unspecified; Z66 Do not resuscitate; Z90.49 Acquired absence of other specified parts of digestive tract; I12.9 Hypertensive chronic kidney disease with stage 1 through stage 4 chronic kidney disease, or unspecified chronic kidney disease
CPT/HCPCS: 32555; 36415; 71045; 71046; 80053; 83615; 83986; 84157; 85025; 85027; 87070; 87205; 88108; 88305; 89051; 93005; 93010; 99285-25; C1729; J1100; J2370; J2405; J2704; J7120

== ENCOUNTER 2019-11-18 01:37 | Emergency (ER) | payer OTHER, MEDICARE ==
[~2019-11-18] VITALS: Ht 175.3 cm; Wt 54.4 kg
[~2019-11-18 01:37] MED LIST changes: +DOCU100 PO; +Milk Of Ma400 MG/5 M PO
== END 2019-11-18 02:37 | disposition home or self-care (01) ==
LOC: ER 01:37
DX: R07.81 Pleurodynia (principal); I10 Essential (primary) hypertension; K21.9 Gastro-esophageal reflux disease without esophagitis; I48.91 Unspecified atrial fibrillation; Z79.899 Other long term (current) drug therapy
CPT/HCPCS: 36415; 99283; J2405